=== PATIENT | male | born 1955 | race American Indian/Alaskan Native ===

== ENCOUNTER 2017-04-12 04:29 | Emergency (ER) | payer MEDICARE ==
--- NOTE | 2017-04-12 05:04 | C.PDOC ---
History Of Present Illness presents with right buttock pain radiating down his leg. Also has had some nausea and vomiting. Feels better now. No incontinence. Time Seen by Provider: 04/12/17 05:04 Chief Complaint (Nursing): Back Pain History Per: Patient History/Exam Limitations: no limitations Onset/Duration Of Symptoms: Days Current Symptoms Are (Timing): Still Present Quality Of Discomfort: Sharp, Aching Severity: Moderate Pain Scale Rating Of: 4 Previous Symptoms: Back Pain Associated Symptoms: None Exacerbating Factor(s): Movement, Sitting Recent travel outside of the [facility]: No Additional History Per: Patient Past Medical History Reviewed: Historical Data, Nursing Documentation, Vital Signs Vital Signs: Last Vital Signs Temp 97.5 F L 04/12/17 04:45 Pulse 90 04/12/17 04:45 Resp 22 04/12/17 04:45 BP 158/93 H 04/12/17 04:45 Pulse Ox 99 04/12/17 05:30 - Medical History PMH: HTN, Seizures Denies: Chronic Kidney Disease Family History: States: No Known Family Hx - Social History Hx Alcohol Use: Yes Hx Substance Use: No (denies) - Immunization History Hx Tetanus Toxoid Vaccination: No Hx Influenza Vaccination: Yes Hx Pneumococcal Vaccination: No Review Of Systems Constitutional: Negative for: Fever, Chills Eyes: Negative for: Redness ENT: Negative for: Throat Pain Cardiovascular: Negative for: Chest Pain Respiratory: Negative for: Shortness of Breath Gastrointestinal: Positive for: Nausea, Vomiting, Abdominal Pain Genitourinary: Negative for: Dysuria Musculoskeletal: Positive for: Leg Pain (right) Skin: Negative for: Rash Neurological: Negative for: Weakness Psych: Negative for: Anxiety Physical Exam - Physical Exam Appears: Non-toxic, No Acute Distress Skin: Warm, Dry Head: Normacephalic Eye(s): bilateral: Normal Inspection Oral Mucosa: Moist Neck: Supple Chest: Symmetrical Cardiovascular: Rhythm Regular Respiratory: No Rales, No Rhonchi, No Wheezing Gastrointestinal/Abdominal: Soft, Tenderness (mild , diffuse), No Distention, No Guarding, No Rebound Back: No CVA Tenderness, Straight Leg Raising (30 right leg) Extremity: Tenderness (r hip), No Pedal Edema, No Deformity Extremity: Bilateral: Atraumatic, Normal Color And Temperature Pulses: Left Dorsalis Pedis: Normal, Right Dorsalis Pedis: Normal Neurological/Psych: Oriented x3 Gait: With Assistance ED Course And Treatment - Laboratory Results Result Diagrams: 04/12/17 06:30 04/12/17 06:30 O2 Sat by Pulse Oximetry: 99 Disposition Counseled Patient/Family Regarding: Studies Performed, Diagnosis - Disposition Disposition Time: 05:04 Condition: UNKNOWN Forms: [facility] ([place]orese) - Clinical Impression Clinical Impression: Sciatica Physician Patient Turnover Patient Signed Over To: Benjamin Ibarra Handoff Comments: pending labs and disposition
[2017-04-12] MEDS ORDERED: Sodium Chloride 0.9% 1,000 ML IV ONE (05:12)
[2017-04-12 06:33] LABS: BASO # 0.1 K/uL (0.0-0.2); BASO % 0.6 % (0.0-2.0); EOS # 0.2 K/uL (0.0-0.7); EOS % 2.1 % (0.0-4.0); HEMOGLOBIN 11.5 g/dL (12.0-18.0); LYMPH % 21.3 % (20.0-40.0); MEAN CELL VOLUME 89.2 fL (80.0-94.0); MEAN CORPUSCULAR HEMOGLOBIN 30.9 pg (27.0-31.0); MEAN CORPUSCULAR HGB CONC 34.6 g/dL (33.0-37.0); MEAN PLATELET VOLUME 7.7 fL (7.2-11.7); MONO # 0.6 K/uL (0.0-0.8); MONO % 6.3 % (0.0-10.0); NEUT # 6.6 K/uL (1.8-7.0); NEUT % 69.7 % (50.0-75.0); RBC 3.72 Mil/uL (4.40-5.90); WHITE BLOOD COUNT 9.5 K/uL (4.8-10.8)
[2017-04-12 06:45] LABS: ALBUMIN 4.3 g/dL (3.5-5.0); CALCIUM 8.3 mg/dl (8.6-10.4)
[2017-04-12 06:53] LABS: ALB/GLOB RATIO 1.1 (1.0-2.1)
[2017-04-12 07:19] LABS: SQUAMOUS EPITHIAL < 1 /hpf (0-5); URINE BILIRUBIN NEGATIVE (NEGATIVE); URINE BLOOD NEGATIVE (NEGATIVE); URINE CLARITY Clear (Clear); URINE COLOR Yellow (YELLOW); URINE GLUCOSE (UA) NORMAL (Normal); URINE LEUKOCYTE ESTERASE NEG Leu/uL (Negative); URINE NITRATE NEGATIVE (NEGATIVE); URINE PROTEIN 1+ mg/dL (NEGATIVE); URINE UROBILINOGEN NORMAL mg/dL (0.2-1.0)
[2017-04-12 07:28] VITALS: BP 144/86; PULSE 84; RESP 18; TEMP 98.1; O2SAT 100
== END 2017-04-12 07:33 | disposition home or self-care (01) ==
LOC: C.ER 04:29
DX: M54.30 Sciatica, unspecified side (principal)
CPT/HCPCS: 80053; 81001; 83690; 85025; 96374; 96375; 99284; J1885; J2405; J7040

== ENCOUNTER 2017-04-20 22:37 | Inpatient (IN) | payer MEDICARE ==
[2017-04-20] MEDS ORDERED: Sodium Chloride 0.9% 1,000 ML IV ONE ×2 (23:06→23:44)
[2017-04-20 23:16] LABS: BASO # 0.2 K/uL (0.0-0.2); EOS # 0.2 K/uL (0.0-0.7); LYMPH # 2.1 K/uL (1.0-4.3); NEUT % 72.8 % (50.0-75.0)
[2017-04-20 23:21] LABS: BASO % 1.5 % (0.0-2.0); EOS % 1.6 % (0.0-4.0); HEMOGLOBIN 11.5 g/dL (12.0-18.0); MEAN CORPUSCULAR HEMOGLOBIN 30.4 pg (27.0-31.0); MEAN CORPUSCULAR HGB CONC 33.1 g/dL (33.0-37.0); MEAN PLATELET VOLUME 8.6 fL (7.2-11.7); MONO # 0.9 K/uL (0.0-0.8); MONO % 7.1 % (0.0-10.0); RBC 3.79 Mil/uL (4.40-5.90); RED CELL DISTRIBUTION WIDTH 14.9 % (11.5-14.5); WHITE BLOOD COUNT 12.3 K/uL (4.8-10.8)
[2017-04-20 23:24] LABS: INR 1.3; PROTHROMBIN TIME 14.8 SECONDS (9.7-12.2)
[2017-04-20 23:24] LABS: VENOUS BLOOD GAS BASE EXCESS -11.8 mmol/L (0.0-2.0); VENOUS BLOOD GAS PCO2 20 mmHg (40-60); VENOUS BLOOD GAS PO2 63 mm/Hg (30-55); VENOUS BLOOD PH 7.36 (7.32-7.43)
--- NOTE | 2017-04-20 23:33 | C.PDOC ---
History Of Present Illness 61 year old male is brought to the ED via EMS requiring immediate medical attention. Patient is complaining of generalized weakness. As per EMS, patient lives alone and his home was found to be in disarray. Patient was evaluated in ED on 04/12 for sciatica and was discharged with Rx for Flexeril. Patient denies chest pain, shortness of breath, nausea, and vomiting. Additional information limited due to patient's confused mental status. Time Seen by Provider: 04/20/17 23:07 Chief Complaint (Nursing): Weakness/Neurological Deficit History Per: EMS History/Exam Limitations: clinical condition Onset/Duration Of Symptoms: Hrs Current Symptoms Are (Timing): Still Present Associated Symptoms Preceding Syncopal Episode: No Predromal Symptoms (Sudden Onset) Seizure Or Post-ictal Symptoms: None Additional History Per: EMS - Symptoms Of CVA Associated Symptoms: New Confusion Past Medical History Reviewed: Historical Data, Nursing Documentation, Vital Signs Vital Signs: Last Vital Signs Temp 98 F 04/21/17 00:01 Pulse 68 04/21/17 01:00 Resp 18 04/21/17 01:00 BP 128/74 04/21/17 01:00 Pulse Ox 97 04/21/17 01:10 - Medical History PMH: HTN, Seizures Denies: Chronic Kidney Disease Surgical History: No Surg Hx Family History: States: Unknown Family Hx - Social History Hx Alcohol Use: Yes Hx Substance Use: No (denies) - Immunization History Hx Tetanus Toxoid Vaccination: No Hx Influenza Vaccination: Yes Hx Pneumococcal Vaccination: No Review Of Systems Review Of Systems: ROS cannot be obtained secondary to pt's inabilty to answer questions. Physical Exam - Physical Exam Appears: Non-toxic, Other (hypotensive, in moderate distress ) Skin: Normal Color, Warm, Dry Head: Atraumatic, Normacephalic Eye(s): bilateral: Normal Inspection Oral Mucosa: Moist Neck: Supple Chest: Symmetrical, No Deformity, No Tenderness Cardiovascular: Rhythm Regular, No Murmur Respiratory: Normal Breath Sounds, No Rales, No Rhonchi, No Wheezing Extremity: Normal ROM, Capillary Refill (less than 2 seconds ) Neurological/Psych: Other (alert, oriented and confused ) ED Course And Treatment - Laboratory Results Result Diagrams: 04/20/17 23:13 04/20/17 23:13 ECG: Interpreted By Me, Viewed By Me ECG Rhythm: Sinus Rhythm Interpretation Of ECG: Normal Sinus Rhythm at rate 82bpm. Left atrial enlargement. Nonspecific T wave changes. Rate From EC O2 Sat by Pulse Oximetry: 97 (on RA) Pulse Ox Interpretation: Normal Critical Care Time - Critical Care Note Total Time (in mins): 50 Documented critical care: time excludes all time spent performing seperately billable procedures. Medical Decision Making Medical Decision Making: Assessment: weakness and confusion Progress: Bloodwork, CXR, CT Head, EKG, UA ordered and reviewed. One liter IV fluids bolus administered. CXR - prel. nad 11:49pm: Case discussed with Dr. Owusu (ICU radio division lieutenant), who will evaluated the patient at bedside. 12:59pm: Patient was evaluated by Dr. Owusu, who requests Renal US. States patient is stable for transfer to the floor. case s/o Dr. Alba pending pending ct scan of head and renal ultrasound Disposition - Disposition Referrals: Non [facility] Provider, [Primary Care Provider] - Disposition Time: 01:12 Condition: FAIR Instructions: Weakness (ED) Forms: [employer] (Ukrainian) - Clinical Impression Clinical Impression: Dehydration, Weakness - Scribe Statement The provider has reviewed the documentation as recorded by the Scribe (Rina Lentz) Provider Attestation: All medical record entries made by the Scribe were at my direction and personally dictated by me. I have reviewed the chart and agree that the record accurately reflects my personal performance of the history, physical exam, medical decision making, and the department course for this patient. I have also personally directed, reviewed, and agree with the discharge instructions and disposition. Physician Patient Turnover Patient Signed Over To: Shaun Alba Handoff Comments: pending imagining and admission
[2017-04-20 23:38] LABS: ALB/GLOB RATIO 0.7 (1.0-2.1); ALBUMIN 4.1 g/dL (3.5-5.0); ALT/SGPT 109 U/L (21-72); AST/SGOT 92 U/L (17-59); BLOOD UREA NITROGEN 101 mg/dL (9-20); CALCIUM 9.5 mg/dl (8.6-10.4); GFR AFRICAN-AMERICAN 20; GFR NON-AFRICAN AMERICAN 16; LIPASE 582 U/L (23-300); MAGNESIUM 2.8 mg/dL (1.6-2.3)
[2017-04-20 23:39] LABS: B-TYPE NATRIURETIC PEPTIDE 134 pg/mL (0-900)
[2017-04-20 23:49] LABS: FREE T4 0.92 ng/dL (0.78-2.19)
[2017-04-21] MEDS ORDERED: Sodium Chloride 0.9% 1,000 ML IV ONE ×2 (00:12→01:17)
[2017-04-21 00:31] LABS: URINE BACTERIA OCC (<OCC); URINE BILIRUBIN NEGATIVE (NEGATIVE); URINE BLOOD NEGATIVE (NEGATIVE); URINE CLARITY Hazy (Clear); URINE COLOR Amber (YELLOW); URINE GLUCOSE (UA) NORMAL (Normal); URINE LEUKOCYTE ESTERASE NEG Leu/uL (Negative); URINE NITRATE NEGATIVE (NEGATIVE); URINE PROTEIN 2+ mg/dL (NEGATIVE)
--- NOTE | 2017-04-21 01:06 | CT ---
EXAM: CT Head Without Intravenous Contrast EXAM DATE/TIME: 04/20/2017 11:09 PM CLINICAL HISTORY: 61 years old, male; Pain; Headache and other: Dizziness; Prior surgery TECHNIQUE: Axial computed tomography images of the head/brain without intravenous contrast. All CT scans at this facility use one or more dose reduction techniques, viz.: automated exposure control; ma/kV adjustment per patient size (including targeted exams where dose is matched to indication; i.e. head); or iterative reconstruction technique. Coronal and sagittal reformatted images were created and reviewed. COMPARISON: No relevant prior studies available. FINDINGS: BRAIN: Moderate to large areas of encephalomalacia in the anterior, inferior frontal lobes bilaterally, which are relatively symmetric in appearance. There is overlying chronic-appearing dural thickening. Diffuse, age-related cortical atrophy and ventriculomegaly. No significant acute abnormality identified. No acute hemorrhage seen within the brain. No acute extra-axial fluid collections visualized. No evidence of significant mass effect within the brain. VENTRICLES: See above. BONES/JOINTS: Post operative changes involving the skull. Evidence of a prior anterior frontal craniotomy. Evidence of previous anterior frontal skull reconstruction with mesh material and multiple metallic screws. Small poornima hole in the right frontal skull. Post operative changes involving the facial bones. Metallic plate and screw fixation devices noted within the bilateral infraorbital rims and left lateral orbital wall. Old fractures of the nasal bones bilaterally. SOFT TISSUES: No acute abnormality of the visualized soft tissues is seen. SINUSES: Visualized paranasal sinuses appear clear. MASTOID AIR CELLS: Mastoid air cells appear clear. IMPRESSION: - No acute findings seen within the brain. - Bilateral frontal lobe encephalomalacia, most likely related to remote traumatic injury. - Evidence of chronic fractures of the anterior skull and facial bones bilaterally, with prior surgical fixation/reconstruction. - See above for remaining findings.
--- NOTE | 2017-04-21 01:13 | CP.PCM.CON ---
History of Present Illness - History of Present Illness History of Present Illness: CCM 61 yo male with hx HTN /seizure to ED c/o weakness. Pt BIBEMS after found in disarray at [facility]. Pt seen in ED 1 week prior for back pain and nausea & vomiting. Pt claims decreased PO over last week and admits being thirsty. claims urinating alot yest. No vomiting or diarrhea. No pain at present. no sob /fever /cough. Pt had episode low BP in ED respnded to IV fluid. Has received 2.5 liters. ROS- as noted All-PCN Social- denied tob/drugs- admits occ. etoh Meds- reviewed FH- Unknown PE Awake, responisve nad T- 97.6 P-72 r-16 BP 128/74 Perrl Neck- no jvdlungs- bilat bs Heart-rr ABd- bs+, soft, nontender Ext- no edema, nontender Neuro- nonfocal Labs, ekg, x--rays-reviewed A&P TIERRA Dehydration Hyperkalemia Transaminitis Hx HTN Seizure disorder cont IV hydration I&O's renal sono Hepatitis profile Treat hyperkalemia repeat labs/cpk cont monitoring until K+ normalized DVT prophylaxis no need for ICU re-consult prn Past Patient History - Infectious Disease Hx of Infectious Diseases: None - Past Social History Smoking Status: Never Smoked - CARDIAC Hx Hypertension: Yes - PULMONARY Hx Respiratory Disorders: No - NEUROLOGICAL Hx Seizures: Yes - HEENT Hx HEENT Problems: No - RENAL Hx Chronic Kidney Disease: No - ENDOCRINE/METABOLIC Hx Endocrine Disorders: No - HEMATOLOGICAL/ONCOLOGICAL Hx Blood Disorders: No - INTEGUMENTARY Hx Dermatological Problems: No - MUSCULOSKELETAL/RHEUMATOLOGICAL Other/Comment: hx sciatica - GASTROINTESTINAL Hx Gastrointestinal Disorders: No - GENITOURINARY/GYNECOLOGICAL Hx Genitourinary Disorders: No - PSYCHIATRIC Hx Substance Use: No (denies) - SURGICAL HISTORY Hx Herniorrhaphy: Yes - ANESTHESIA Hx Anesthesia: Yes Hx Anesthesia Reactions: No Meds Allergies/Adverse Reactions: Allergies Allergy/AdvReac Type Severity Reaction Status Date / Time Penicillins Allergy Mild RASH Verified 04/20/17 22:49 Results - Vital Signs Recent Vital Signs: Last Vital Signs Temp 98 F 04/21/17 00:01 Pulse 68 04/21/17 01:00 Resp 18 04/21/17 01:00 BP 128/74 04/21/17 01:00 Pulse Ox 97 04/21/17 01:10 - Labs Result Diagrams: 04/20/17 23:13 04/20/17 23:13 Labs: Laboratory Results - last 24 hr 04/20/17 04/20/17 04/20/17 23:13 23:13 23:13 WBC 12.3 H RBC 3.79 L Hgb 11.5 L Hct 34.9 L MCV 92.0 D MCH 30.4 MCHC 33.1 RDW 14.9 H Plt Count 648 H D MPV 8.6 Neut % (Auto) 72.8 Lymph % (Auto) 17.0 L Morton % (Auto) 7.1 Eos % (Auto) 1.6 Baso % (Auto) 1.5 Neut # 9.0 H Lymph # 2.1 Morton # 0.9 H Eos # 0.2 Baso # 0.2 PT 14.8 H INR 1.3 APTT 47 H pO2 VBG pH VBG pCO2 VBG HCO3 VBG Total CO2 VBG O2 Sat (Calc) VBG Base Excess VBG Potassium Glucose Lactate Sodium 153 H Potassium 5.7 H Chloride 116 H Carbon Dioxide 17 L Anion Gap 26 H BUN 101 H* D Creatinine 3.8 H Est GFR ( Amer) 20 Est GFR (Non-Af Amer) 16 Random Glucose 124 H Calcium 9.5 Magnesium 2.8 H Total Bilirubin 2.5 H AST 92 H ALT 109 H D Alkaline Phosphatase 198 H D Total Creatine Kinase 1012 H Troponin I 0.0820 NT-Pro-B Natriuret Pep 134 Total Protein 10.2 H Albumin 4.1 Globulin 6.0 H Albumin/Globulin Ratio 0.7 L Lipase 582 H Free T4 TSH 3rd Generation 1.56 Venous Blood Potassium Urine Color Urine Clarity Urine pH Ur Specific Chester Urine Protein Urine Glucose (UA) Urine Ketones Urine Blood Urine Nitrate Urine Bilirubin Urine Urobilinogen Ur Leukocyte Esterase Urine WBC (Auto) Urine Bacteria Hyaline Casts Alcohol, Quantitative < 10 04/20/17 04/20/17 04/21/17 23:13 23:22 00:24 WBC RBC Hgb Hct MCV MCH MCHC RDW Plt Count MPV Neut % (Auto) Lymph % (Auto) Morton % (Auto) Eos % (Auto) Baso % (Auto) Neut # Lymph # Morton # Eos # Baso # PT INR APTT pO2 63 H VBG pH 7.36 VBG pCO2 20 L VBG HCO3 15.5 VBG Total CO2 11.9 L VBG O2 Sat (Calc) 93.2 H VBG Base Excess -11.8 L VBG Potassium 2.6 L Glucose 72 L Lactate 1.0 Sodium 151.0 H Potassium Chloride 129.0 H Carbon Dioxide Anion Gap BUN Creatinine Est GFR ( Amer) Est GFR (Non-Af Amer) Random Glucose Calcium Magnesium Total Bilirubin AST ALT Alkaline Phosphatase Total Creatine Kinase Troponin I NT-Pro-B Natriuret Pep Total Protein Albumin Globulin Albumin/Globulin Ratio Lipase Free T4 0.92 TSH 3rd Generation 1.86 Venous Blood Potassium 2.6 L Urine Color Danielle Urine Clarity Hazy Urine pH 5.0 Ur Specific Chester 1.021 Urine Protein 2+ H Urine Glucose (UA) Normal Urine Ketones Negative Urine Blood Negative Urine Nitrate Negative Urine Bilirubin Negative Urine Urobilinogen 4.0 Ur Leukocyte Esterase Neg Urine WBC (Auto) 4 Urine Bacteria Occ H Hyaline Casts 11-20 H Alcohol, Quantitative Assessment & Plan (1) TIERRA (acute kidney injury) Status: Acute (2) Dehydration Status: Acute (3) Hyperkalemia Status: Acute (4) Seizure disorder Status: Chronic
[2017-04-21] MEDS ORDERED: Sodium Chloride 0.9% 1,000 ML ONE ×2 (01:27→02:52)
--- NOTE | 2017-04-21 02:50 | US ---
EXAM: US Retroperitoneal Complete, Renal EXAM DATE/TIME: 04/21/2017 12:52 AM CLINICAL HISTORY: 61 years old, male; Signs and symptoms; Other: River; Additional info: Acute kidney injury etio unnown TECHNIQUE: Real-time ultrasound of the retroperitoneum (complete) with image documentation. COMPARISON: No relevant prior studies available. FINDINGS: Right kidney: Demonstrates increased cortical echogenicity, most likely due to renal parenchymal disease. Otherwise within normal limits in appearance. Measures 10.5 cm in length. No evidence of hydronephrosis. Left kidney: Demonstrates increased cortical echogenicity, most likely due to renal parenchymal disease. Contains a 2 cm anechoic lesion, compatible with a simple cyst. Otherwise within normal limits in appearance. Measures 10.3 cm in length. No evidence of hydronephrosis. Bladder: Incompletely distended. Otherwise unremarkable in appearance. Other findings: Gallstones and gallbladder sludge incidentally noted. Reportedly negative sonographic Casillas's sign. Common bile duct does not appear abnormally dilated. IMPRESSION: Bilateral increased renal echogenicity, most likely due to renal parenchymal disease. No evidence of hydronephrosis. Left renal cyst. Gallstones and sludge incidentally noted. See above for remaining findings.
[2017-04-21] MEDS: Sodium Chloride 0.9% 1,000 ML IV SCH ×3 (02:54→19:00)
[2017-04-21 03:47] LABS: CALCIUM 6.9 mg/dl (8.6-10.4)
[2017-04-21 04:44] LABS: HEPATITIS B SURFACE AG NEGATIVE (NEGATIVE)
[2017-04-21 04:50] LABS: HEPATITIS A IGM NEGATIVE (NEGATIVE); HEPATITIS B CORE AB Negative (NEGATIVE)
[2017-04-21 05:01] LABS: HEPATITIS C ANTIBODY Negative (NEGATIVE)
--- NOTE | 2017-04-21 11:38 | VASCLAB ---
PROCEDURE: HISTORY: Loss of consciousness COMPARISON: None available. TECHNIQUE: Grayscale and duplex Doppler evaluation of the cervical carotid and vertebral arteries were performed. The common carotid, carotid bifurcations and cervical Internal Carotid Artery (ICA) and proximal External Carotid Artery (ECA) were evaluated. The vertebral arteries were evaluated for gross patency and flow direction. Report prepared by FRANCIE Lazo FINDINGS: RIGHT CAROTID ARTERIES: 1. Common Carotid Artery: No significant focal plaque formation of the right common carotid artery. Maximum Peak Systolic velocity: 103 cm/sec: End-diastolic velocity 19 cm/sec. 2. Carotid Bifurcation: plaque formation. Maximum Peak Systolic velocity: 71 cm/sec: End-diastolic velocity 13 cm/sec. 3. Internal Carotid Artery: Plaque description: 3.1. Proximal Segment: Peak systolic velocity 55 cm/sec: End-diastolic velocity 19 cm/sec - % stenosis 0-15% 3.2. Middle Segment: Peak systolic velocity 68 cm/sec: End-diastolic velocity 29 cm/sec - % stenosis 0-15% 3.3. Distal Segment: Peak systolic velocity 54 cm/sec: End-diastolic velocity 25 cm/sec - % stenosis 0-15% 4. External Carotid Artery: No significant focal plaque formation. Peak systolic velocity 94 cm/sec 5. ICA/CCA Ratio: 1.1 LEFT CAROTID ARTERIES: 1. Common Carotid Artery: No significant focal plaque formation of the left common carotid artery. Maximum Peak Systolic velocity: 103 cm/sec: End-diastolic velocity 27 cm/sec. 2. Carotid Bifurcation: plaque formation. Maximum Peak Systolic velocity: 58 cm/sec: End-diastolic velocity 19 cm/sec. 3. Internal Carotid Artery: Plaque description: Minimal calcific 3.1. Proximal Segment: Peak systolic velocity 55 cm/sec: End-diastolic velocity 22 cm/sec - % stenosis 0-15% 3.2. Middle Segment: Peak systolic velocity 69 cm/sec: End-diastolic velocity 29 cm/sec - % stenosis 0-15% 3.3. Distal Segment: Peak systolic velocity 35 cm/sec: End-diastolic velocity 12 cm/sec - % stenosis 0-15% 4. External Carotid Artery: No significant focal plaque formation. Peak systolic velocity 64 cm/sec 5. ICA/CCA Ratio: 0.7 VERTEBRAL ARTERIES: 1. Right Vertebral Artery: The right vertebral artery flow direction is antegrade. 2. Left Vertebral Artery: The left vertebral artery flow direction is antegrade. OTHER FINDINGS: 1. Right Brachial Blood pressure: 130 mmHg. 2. Left Brachial Blood pressure: 120 mmHg. IMPRESSION: RIGHT: Duplex scan does not suggest hemodynamically significant stenosis of the right extracranial carotid arteries. LEFT: Duplex scan does not suggest hemodynamically significant stenosis of the left extracranial carotid arteries.
--- NOTE | 2017-04-21 12:42 | CT ---
PROCEDURE: CT HEAD WITHOUT CONTRAST. HISTORY: episode of passing out COMPARISON: 04/21/2017. TECHNIQUE: Axial computed tomography images were obtained through the head/brain without intravenous contrast. Radiation dose: Total exam DLP = 1006.99 mGy-cm. This CT exam was performed using one or more of the following dose reduction techniques: Automated exposure control, adjustment of the mA and/or kV according to patient size, and/or use of iterative reconstruction technique. FINDINGS: HEMORRHAGE: No intracranial hemorrhage. BRAIN: There is redemonstration of cystic encephalomalacia in bilateral frontal lobes and postsurgical changes of anterior frontal craniotomy there is no mass, mass effect or abnormal extra-axial fluid collection. There is no territorial infarction. VENTRICLES: There is mild age-related global parenchymal volume loss and proportionate enlargement of the ventricles and cortical sulci. CALVARIUM: Status post frontal craniotomy. There are postsurgical changes of anterior frontal skull reconstruction with mashed material and multiple metallic screws. Small bore hole in the right frontal skull. There are chronic fractures in the nasal bones and bilateral infraorbital rims. PARANASAL SINUSES: Predominantly clear. MASTOID AIR CELLS: Predominantly clear. OTHER FINDINGS: None. IMPRESSION: No acute intracranial abnormality. Bilateral frontal lobe cystic encephalomalacia, sequela of remote trauma.
--- NOTE | 2017-04-21 13:10 | RAD ---
PROCEDURE: CHEST RADIOGRAPH, 1 VIEW HISTORY: chest pain COMPARISON: None available. FINDINGS: LUNGS: The lungs are well inflated. The right lung is clear. There is ill-defined airspace disease in the left lung base. PLEURA: No pneumothorax or pleural fluid seen. CARDIOVASCULAR: Normal. OSSEOUS STRUCTURES: No significant abnormalities. VISUALIZED UPPER ABDOMEN: Normal. OTHER FINDINGS: None. IMPRESSION: Ill-defined airspace disease in the left lung base may represent atelectasis or developing pneumonia. Follow-up after medical management is recommended to ensure complete resolution.
--- NOTE | 2017-04-21 13:40 | CP.PCM.PN ---
Subjective - Date & Time of Evaluation Date of Evaluation: 04/21/17 Time of Evaluation: 13:36 - Subjective Subjective: PGY2 progress note for Dr. Garcia 61 year old male with past medical history of HTN and seizure disorder was admitted to hospital for dehydration 2/2 vomiting. Patient states that for past few day she has been vomiting. He denie shaving any diarrhea or abdominal pain. Patient "felt funny" yesterday and was brought to hospital. While in the hospital, he was noted to have TIERRA 2/2 dehydration. Patient was fluid resuscitated. This morning nurse states that pt was using the commode, got up sat in bed and passed out for a few minutes. Patient then woke up spontaneously. Patient was not confused after this episode. He was A&ox3. Patient states that his last seizure was over 1 year ago. He normally has a smell aura prior to the seizure and then some tonic clonic movement and then postictal state. Currently, pt denies having any F/C, CP, SOB, abd pain, N/V/D/ C. PMHx: stated above Sx; denies Allergies: penicillin Social: denies tobacco, ETOH or drug use. lives alone Objective - Vital Signs/Intake and Output Vital Signs (last 24 hours): Temp Pulse Resp BP Pulse Ox 97.4 F L 72 20 112/62 98 04/21/17 05:30 04/21/17 05:30 04/21/17 05:30 04/21/17 12:53 04/21/17 05:30 Intake and Output: 04/21/17 04/21/17 06:59 18:59 Intake Total 4360 Output Total 380 Balance 3980 - Medications Medications: Current Medications Cyclobenzaprine HCl (Flexeril) 10 mg PO DAILY PRN PRN Reason: Muscle spasm Gemfibrozil (Lopid) 600 mg PO DAILY [facility] Heparin Sodium (Porcine) (Heparin) 5,000 units SC Q12 [facility] Last Admin: 04/21/17 09:44 Dose: 5,000 units Home Med (Clonazepam [Clonazepam]) 2 mg PO DAILY [facility] Home Med (Levetiracetam) 1,000 mg SL BID [facility] Sodium Chloride (Sodium Chloride 0.9%) 1,000 mls @ 125 mls/hr IV .Q8H [facility] Last Admin: 04/21/17 11:45 Dose: 125 mls/hr Pneumococcal Polyvalent Vaccine (Pneumovax 23 Vaccine) 0.5 ml IM .ONCE ONE Stop: 04/23/17 10:01 - Labs Labs: 04/20/17 23:13 04/21/17 03:28 PT 14.8 SECONDS (9.7-12.2) H 04/20/17 23:13 INR 1.3 04/20/17 23:13 APTT 47 SECONDS (21-34) H 04/20/17 23:13 - Constitutional Appears: Non-toxic, No Acute Distress - Head Exam Head Exam: ATRAUMATIC - ENT Exam ENT Exam: Mucous Membranes Moist - Respiratory Exam Respiratory Exam: Clear to Ausculation Bilateral. absent: Accessory Muscle Use , Rhonchi, Wheezes, Respiratory Distress - Cardiovascular Exam Cardiovascular Exam: REGULAR RHYTHM, +S1, +S2. absent: Gallop, Rubs, Murmur - GI/Abdominal Exam GI & Abdominal Exam: Soft, Normal Bowel Sounds. absent: Distended, Firm, Guarding, Rigid, Tenderness, Organomegaly - Extremities Exam Extremities Exam: absent: Pedal Edema, Tenderness - Neurological Exam Neurological Exam: Alert, Awake, CN II-XII Intact, Oriented x3 - Psychiatric Exam Psychiatric exam: Normal Affect, Normal Mood - Skin Skin Exam: Dry, Intact, Normal Color, Warm Assessment and Plan - Assessment and Plan (Free Text) Assessment: 61 year old male with past medical history of HTN and seizure disorder is admitted for dehydration 2/2 vomiting. Pt noted to have TIERRA with Cr of 3.8 on admission (previous 04/12/17 1.5). Dehydration Continue NS at 125 cc TIERRA Kidney function is improving Will continue to monitor Renal US was negative Transminitis Likely 2/2 dehydration will continue to monitor will check Hep panel Seizure disorder Will check EEG Continue home medication Keppra 1000 mg BID Transient loss of consciousness Will check Ct of head, carotid US and EEG Prophylaxis Pepcid SCDs Heparin All managements and orders per Dr. Garcia
[2017-04-21] MEDS ORDERED: LEVETIRACETAM 1000 MG SL SCH (18:00)
[2017-04-22 00:49] VITALS: RESP 20
[2017-04-22] MEDS: Sodium Chloride 0.9% 1,000 ML IV SCH ×4 (03:00→20:51)
--- NOTE | 2017-04-22 06:54 | HP ---
HISTORY OF PRESENT ILLNESS: The patient is a 61-year-old male, comes in with chief complaint of dehydration with renal insufficiency, presents with seizure for several years, had been on Keppra, with periods of loss of consciousness. The patient came to the ER, advised admission for renal failure. PHYSICAL EXAMINATION: The patient is awake, alert, oriented. VITAL SIGNS: Temperature is 98, pulse 90. HEENT: Within normal limits. NECK: Supple. CHEST: Symmetrical. HEART: Regular. ABDOMEN: Soft. EXTREMITIES: No edema. IMPRESSION: The patient with acute renal failure. Altered mental status seizure and CVA. PLAN: Patient will get bed rest, supportive care. Amie Garcia MD
[2017-04-22 09:07] LABS: ALB/GLOB RATIO 0.9 (1.0-2.1); ALBUMIN 3.4 g/dL (3.5-5.0); CALCIUM 8.4 mg/dl (8.6-10.4)
[2017-04-22 09:32] LABS: BASO % 0.3 % (0.0-2.0); EOS # 0.2 K/uL (0.0-0.7); EOS % 3.1 % (0.0-4.0); LYMPH # 1.7 K/uL (1.0-4.3); LYMPH % 23.9 % (20.0-40.0); MEAN CORPUSCULAR HEMOGLOBIN 30.1 pg (27.0-31.0); MEAN PLATELET VOLUME 7.6 fL (7.2-11.7); MONO # 0.3 K/uL (0.0-0.8); MONO % 4.5 % (0.0-10.0); NEUT # 4.8 K/uL (1.8-7.0); NEUT % 68.2 % (50.0-75.0); RBC 3.03 Mil/uL (4.40-5.90); RED CELL DISTRIBUTION WIDTH 14.4 % (11.5-14.5)
[2017-04-22 09:36] LABS: HEMOGLOBIN 9.1 g/dL (12.0-18.0)
[2017-04-22 09:40] LABS: HEPATITIS B SURFACE AG NEGATIVE (NEGATIVE)
[2017-04-22 09:45] LABS: HEPATITIS A IGM NEGATIVE (NEGATIVE); HEPATITIS B CORE AB Negative (NEGATIVE)
--- NOTE | 2017-04-22 09:49 | CARD ---
APPROVED REPORT EKG Measurement Heart [id number] ID [id number] <Conclusion> Normal sinus rhythm Possible Left atrial enlargement Nonspecific T wave abnormality Prolonged QT Abnormal ECG
--- NOTE | 2017-04-22 10:17 | CP.PCM.PN ---
Subjective - Date & Time of Evaluation Date of Evaluation: 04/22/17 Time of Evaluation: 10:13 - Subjective Subjective: PGY2 progress note for Dr. Garcia Pt seen and examined at bedside. No acute events overnight. Pt is A&Ox3 this morning and answering questions briskly. Patient denies having any RAE, CP, SOB , abd pain, N/V/D/C, F/C. Pt does complain of left sided neck pain which he attributes to sleeping incorrectly. Patient has full ROM of neck and is able to move all extremities without difficulty. 12 point ROS negative except for above mentioned. Objective - Vital Signs/Intake and Output Vital Signs (last 24 hours): Temp Pulse Resp BP Pulse Ox 98.6 F 74 20 131/81 100 04/22/17 07:36 04/22/17 07:36 04/22/17 07:36 04/22/17 07:36 04/22/17 07:36 Intake and Output: 04/22/17 04/22/17 06:59 18:59 Intake Total 2420 Output Total 2100 Balance 320 - Medications Medications: Current Medications Clonazepam (Klonopin) 2 mg PO DAILY [facility] Last Admin: 04/22/17 09:38 Dose: 2 mg Cyclobenzaprine HCl (Flexeril) 10 mg PO DAILY PRN PRN Reason: Muscle spasm Last Admin: 04/21/17 14:11 Dose: 10 mg Famotidine (Pepcid) 20 mg PO DAILY [facility] Last Admin: 04/22/17 09:38 Dose: 20 mg Gemfibrozil (Lopid) 600 mg PO DAILY [facility] Last Admin: 04/22/17 09:38 Dose: 600 mg Heparin Sodium (Porcine) (Heparin) 5,000 units SC Q12 [facility] Last Admin: 04/22/17 09:39 Dose: 5,000 units Sodium Chloride (Sodium Chloride 0.9%) 1,000 mls @ 125 mls/hr IV .Q8H [facility] Last Admin: 04/22/17 03:00 Dose: 125 mls/hr Levetiracetam (Keppra) 1,000 mg PO BID [facility] Last Admin: 04/22/17 09:38 Dose: 1,000 mg Pneumococcal Polyvalent Vaccine (Pneumovax 23 Vaccine) 0.5 ml IM .ONCE ONE Stop: 01/19/18 10:01 - Labs Labs: 04/22/17 09:24 04/22/17 08:40 PT 14.8 SECONDS (9.7-12.2) H 04/20/17 23:13 INR 1.3 04/20/17 23:13 APTT 47 SECONDS (21-34) H 04/20/17 23:13 - Constitutional Appears: Non-toxic, No Acute Distress - Head Exam Head Exam: ATRAUMATIC - ENT Exam ENT Exam: Mucous Membranes Moist - Respiratory Exam Respiratory Exam: Clear to Ausculation Bilateral. absent: Accessory Muscle Use , Rales, Rhonchi, Wheezes, Respiratory Distress - Cardiovascular Exam Cardiovascular Exam: REGULAR RHYTHM, +S1, +S2. absent: Gallop, Rubs, Murmur - GI/Abdominal Exam GI & Abdominal Exam: Soft, Normal Bowel Sounds. absent: Distended, Firm, Guarding, Rigid, Tenderness, Organomegaly - Back Exam Back Exam: NORMAL INSPECTION. absent: paraspinal tenderness Additional comments: left side of neck paraspinal hypertrophy noted. - Neurological Exam Neurological Exam: Alert, Awake, Oriented x3 - Psychiatric Exam Psychiatric exam: Normal Affect, Normal Mood - Skin Skin Exam: Dry, Intact, Normal Color, Warm Assessment and Plan - Assessment and Plan (Free Text) Assessment: 61 year old male with past medical history of HTN and seizure disorder is admitted for dehydration 2/2 vomiting. Pt noted to have TIERRA with Cr of 3.8 on admission (previous 04/12/17 1.5). Dehydration Continue NS at 125 cc LFTs and kidney function is improving Patient has good urine output TIERRA Kidney function is improving. Repeat BUN this am is 55 Cr 2.1 Will continue to monitor Renal US was negative Transminitis Improved Seizure disorder Will check EEG Continue home medication Keppra 1000 mg BID Transient loss of consciousness Ct of head negative for acute changes Carotid US is normal EEG pending Prophylaxis Pepcid SCDs Heparin Will consult PT for weakness All managements and orders per Dr. Garcia
[2017-04-22 10:36] LABS: HEPATITIS C ANTIBODY Negative (NEGATIVE)
[2017-04-23 00:56] VITALS: O2SAT 95
[2017-04-23] MEDS: Sodium Chloride 0.9% 1,000 ML IV SCH ×4 (03:00→14:51)
[2017-04-23 07:07] LABS: BASO % 0.4 % (0.0-2.0); EOS # 0.2 K/uL (0.0-0.7); EOS % 3.2 % (0.0-4.0); HEMOGLOBIN 8.6 g/dL (12.0-18.0); LYMPH # 1.8 K/uL (1.0-4.3); LYMPH % 27.1 % (20.0-40.0); MEAN CELL VOLUME 89.2 fL (80.0-94.0); MEAN CORPUSCULAR HGB CONC 33.7 g/dL (33.0-37.0); MEAN PLATELET VOLUME 7.8 fL (7.2-11.7); MONO # 0.4 K/uL (0.0-0.8); NEUT # 4.3 K/uL (1.8-7.0); NEUT % 63.3 % (50.0-75.0); RBC 2.87 Mil/uL (4.40-5.90); RED CELL DISTRIBUTION WIDTH 14.1 % (11.5-14.5); WHITE BLOOD COUNT 6.8 K/uL (4.8-10.8)
[2017-04-23 08:27] LABS: ALB/GLOB RATIO 0.9 (1.0-2.1); ALBUMIN 3.5 g/dL (3.5-5.0); CALCIUM 8.9 mg/dl (8.6-10.4)
[2017-04-23] MEDS: Pneumococcal 23-Valent Vaccine IM ONE (09:47)
--- NOTE | 2017-04-23 10:22 | CP.PCM.PN ---
Subjective - Date & Time of Evaluation Date of Evaluation: 04/23/17 Time of Evaluation: 10:18 - Subjective Subjective: PGY2 progress note for Dr. Garcia Pt seen and examined at bedside. No acute events overnight. Pt restring comfortably. Denies having any CP, SOB, abd pain, N/V/D/C, F/C. Pt tolerating diet well. 12 point ROS negative except for above mentioned. Objective - Vital Signs/Intake and Output Vital Signs (last 24 hours): Temp Pulse Resp BP Pulse Ox 99.6 F 98 H 20 156/89 H 95 04/23/17 07:00 04/23/17 07:00 04/23/17 07:00 04/23/17 07:00 04/23/17 07:00 Intake and Output: 04/23/17 04/23/17 06:59 18:59 Intake Total 990 Output Total 300 Balance 690 - Medications Medications: Current Medications Clonazepam (Klonopin) 2 mg PO DAILY [facility] Last Admin: 04/23/17 09:45 Dose: 2 mg Cyclobenzaprine HCl (Flexeril) 10 mg PO DAILY PRN PRN Reason: Muscle spasm Last Admin: 04/23/17 09:45 Dose: 10 mg Famotidine (Pepcid) 20 mg PO DAILY [facility] Last Admin: 04/22/17 09:38 Dose: 20 mg Gemfibrozil (Lopid) 600 mg PO DAILY [facility] Last Admin: 04/23/17 09:46 Dose: 600 mg Heparin Sodium (Porcine) (Heparin) 5,000 units SC Q12 [facility] Last Admin: 04/23/17 09:45 Dose: 5,000 units Sodium Chloride (Sodium Chloride 0.9%) 1,000 mls @ 125 mls/hr IV .Q8H [facility] Last Admin: 04/23/17 05:00 Dose: 125 mls/hr Levetiracetam (Keppra) 1,000 mg PO BID [facility] Last Admin: 04/23/17 09:45 Dose: 1,000 mg - Labs Labs: 04/23/17 06:45 04/23/17 06:45 PT 14.8 SECONDS (9.7-12.2) H 04/20/17 23:13 INR 1.3 04/20/17 23:13 APTT 47 SECONDS (21-34) H 04/20/17 23:13 - Constitutional Appears: Non-toxic, No Acute Distress - Head Exam Head Exam: ATRAUMATIC - ENT Exam ENT Exam: Mucous Membranes Moist - Respiratory Exam Respiratory Exam: Clear to Ausculation Bilateral. absent: Accessory Muscle Use , Rhonchi, Wheezes, Respiratory Distress - Cardiovascular Exam Cardiovascular Exam: REGULAR RHYTHM, +S1, +S2. absent: Gallop, Rubs, Murmur - GI/Abdominal Exam GI & Abdominal Exam: Soft, Normal Bowel Sounds. absent: Distended, Firm, Guarding, Rigid, Tenderness, Organomegaly - Extremities Exam Extremities Exam: absent: Pedal Edema, Tenderness - Neurological Exam Neurological Exam: Alert, Awake, Oriented x3 - Psychiatric Exam Psychiatric exam: Normal Affect, Normal Mood - Skin Skin Exam: Dry, Intact, Normal Color, Warm Assessment and Plan - Assessment and Plan (Free Text) Assessment: 61 year old male with past medical history of HTN and seizure disorder is admitted for dehydration 2/2 vomiting. Pt noted to have TIERRA with Cr of 3.8 on admission (previous 04/12/17 1.5). Dehydration Continue NS at 125 cc LFTs and kidney function is improving Patient has good urine output TIERRA Kidney function improving. Will avoid nephrotoxic drugs Renal US was negative Transminitis Improved hep panel negative Seizure disorder EEG pending Continue home medication Keppra 1000 mg BID Transient loss of consciousness Ct of head negative for acute changes Carotid US is normal EEG pending Prophylaxis Pepcid SCDs Heparin Will consult PT/OT for weakness All managements and orders per Dr. Garcia Disposition: Patient was seen by PT/OT who recommended [facility] for patient. Patient refused to go to [facility] stating that his sister from [place] is coming to take him to [place] to live with her. I spoke with sister, Bhavya Ratliff ([phone]) who states that she will be coming to pick him up in two days. Since patient has unsteady gait and weakness, will wait to discharge patient.
[2017-04-23 12:53] LABS: IRON 10 ug/dL (49-181)
[2017-04-23 12:54] LABS: % IRON SATURATION 5 (20-55); TOTAL IRON BINDING CAPACITY 200 ug/dL (250-450)
[2017-04-23] MEDS ORDERED: Sodium Chloride 0.9% 1,000 ML IV SCH (15:41)
--- NOTE | 2017-04-23 16:19 | RAD ---
HISTORY: fever COMPARISON: Chest radiograph dated 04/20/2017 FINDINGS: LUNGS: Previously described left basilar airspace disease not clearly evident on the current study. PLEURA: No significant pleural effusion identified, no pneumothorax apparent. CARDIOVASCULAR: Normal. OSSEOUS STRUCTURES: Unchanged. VISUALIZED UPPER ABDOMEN: Normal. OTHER FINDINGS: None. IMPRESSION: Previously described left basilar airspace disease not clearly evident on the current study.
[2017-04-23 18:00] LABS: URINE BILIRUBIN NEGATIVE (NEGATIVE); URINE CLARITY Clear (Clear); URINE COLOR Straw (YELLOW); URINE GLUCOSE (UA) NORMAL (Normal); URINE LEUKOCYTE ESTERASE NEG Leu/uL (Negative); URINE NITRATE NEGATIVE (NEGATIVE); URINE PROTEIN 1+ mg/dL (NEGATIVE); URINE UROBILINOGEN NORMAL mg/dL (0.2-1.0)
[2017-04-23 18:11] LABS: URINE BLOOD NEGATIVE (NEGATIVE)
[2017-04-24 08:58] LABS: ALB/GLOB RATIO 0.9 (1.0-2.1); ALBUMIN 3.6 g/dL (3.5-5.0)
[2017-04-24 08:59] LABS: BASO % 0.4 % (0.0-2.0); EOS # 0.2 K/uL (0.0-0.7); EOS % 3.4 % (0.0-4.0); HEMOGLOBIN 8.6 g/dL (12.0-18.0); LYMPH # 1.6 K/uL (1.0-4.3); MEAN CORPUSCULAR HGB CONC 32.9 g/dL (33.0-37.0); MEAN PLATELET VOLUME 8.4 fL (7.2-11.7); MONO # 0.4 K/uL (0.0-0.8); MONO % 7.1 % (0.0-10.0); NEUT # 3.7 K/uL (1.8-7.0); NEUT % 62.1 % (50.0-75.0); NRBC % 0.2 % (0.0-2.0); RBC 2.86 Mil/uL (4.40-5.90); RED CELL DISTRIBUTION WIDTH 14.1 % (11.5-14.5)
--- NOTE | 2017-04-24 11:17 | CP.PCM.PN ---
Subjective - Date & Time of Evaluation Date of Evaluation: 04/24/17 Time of Evaluation: 11:17 - Subjective Subjective: Alert and orientedx3, no acute distress. Objective - Vital Signs/Intake and Output Vital Signs (last 24 hours): Temp Pulse Resp BP Pulse Ox 98.2 F 108 H 20 129/77 95 04/23/17 23:15 04/23/17 23:15 04/23/17 23:15 04/23/17 23:15 04/23/17 23:15 Intake and Output: 04/24/17 04/24/17 06:59 18:59 Intake Total 1000 Output Total 1100 Balance -100 - Medications Medications: Current Medications Clonazepam (Klonopin) 2 mg PO DAILY [facility] Last Admin: 04/23/17 09:45 Dose: 2 mg Cyclobenzaprine HCl (Flexeril) 10 mg PO DAILY PRN PRN Reason: Muscle spasm Last Admin: 04/23/17 09:45 Dose: 10 mg Famotidine (Pepcid) 20 mg PO DAILY [facility] Last Admin: 04/23/17 10:00 Dose: 20 mg Gemfibrozil (Lopid) 600 mg PO DAILY [facility] Last Admin: 04/23/17 09:46 Dose: 600 mg Sodium Chloride (Sodium Chloride 0.9%) 1,000 mls @ 75 mls/hr IV .[id number] [facility] Last Admin: 04/23/17 16:00 Dose: 75 mls/hr Cefepime HCl 1 gm/ Dextrose 50 mls @ 100 mls/hr IVPB Q12H [facility] Last Admin: 04/23/17 20:21 Dose: 100 mls/hr Levetiracetam (Keppra) 1,000 mg PO BID [facility] Last Admin: 04/23/17 20:21 Dose: 1,000 mg - Labs Labs: 04/24/17 08:18 04/24/17 08:18 PT 14.8 SECONDS (9.7-12.2) H 04/20/17 23:13 INR 1.3 04/20/17 23:13 APTT 47 SECONDS (21-34) H 04/20/17 23:13 Assessment and Plan - Assessment and Plan (Free Text) Assessment: Patient is seen by DR Garcia, insisting to go home. Had fever yesterday but with normal temp now. Patient doesn't want to wait for blood cultures repsults. As per DR Garcia discharged home on oral ceftin 250mg bid for 7 days. Advised follow up with PMD IN 1 week or as needed. Alert and orientedx3, no sob or chest pains noted.
[2017-04-24] MEDS ORDERED: Pneumococcal 23-Valent Vaccine IM ONE (14:17)
[2017-04-24] MEDS: Pneumococcal 23-Valent Vaccine IM ONE (14:28)
[2017-04-24 16:20] VITALS: BP 143/89; PULSE 109; TEMP 98.1
--- NOTE | 2017-04-25 21:44 | DS ---
HISTORY OF PRESENT ILLNESS: Mr. Hsieh is a 61-year-old male, admitted with chief complaint of loss of consciousness, weakness, dehydration. Patient is with seizure, on Keppra. The patient with elevated BUN and creatinine. The patient started on IV hydration, started on Keppra. He has improved mental status. The patient got a fever of 102. Blood culture urine culture, start antibiotics. Hemoglobin down at 8, but has been stable at that level. The patient insisted on him being discharged today because he has his own private doctor in [place]. The patient was given Ceftin by mouth 250 twice a day. Advised to see his physician and we will follow out urine and blood culture as an outpatient. Seizure, dehydration, fever and possible sepsis. Amie Garcia MD
== END 2017-04-24 17:00 | disposition home or self-care (01) | DRG 683 ==
LOC: SUPCPDRO 22:37 → C.ER 22:37 → C.9E 04-21 03:20 → C.6T 04-21 04:18
PROVIDERS: ADMIT Internal Medicine Pulmonary Disease; ATTEND Internal Medicine Pulmonary Disease
DX: N17.9 Acute kidney failure, unspecified (principal); E86.0 Dehydration; E87.5 Hyperkalemia; R41.82 Altered mental status, unspecified; I69.354 Hemiplegia and hemiparesis following cerebral infarction affecting left non-dominant side; G40.909 Epilepsy, unspecified, not intractable, without status epilepticus; I10 Essential (primary) hypertension; M54.30 Sciatica, unspecified side; R50.9 Fever, unspecified; R26.81 Unsteadiness on feet; Z88.0 Allergy status to penicillin

== ENCOUNTER 2017-11-24 11:26 | Inpatient (IN) | payer MEDICARE ==
[2017-11-24] MEDS ORDERED: Sodium Chloride 0.9% 1,000 ML IV ONE ×3 (11:48→16:55)
--- NOTE | 2017-11-24 11:57 | C.PDOC ---
History Of Present Illness <Abbey Thao - Last Filed: 11/24/17 15:06> <Arcelia,Eileen A - Last Filed: 11/24/17 17:55> 62 y/o male with history of HTN and Seizure brought to ED by EMS after being found on floor in his house. Patient states he fell and has been on the floor for 2 days. Patient reports abrasion to ridge of nose and denies loc, headache, nausea, vomiting or any other complaints at this time. (Eileen Paniagua) <Abbey Thao - Last Filed: 11/24/17 15:06> - HPI History Per: Patient History/Exam Limitations: no limitations Onset/Duration Of Symptoms: Days Severity: Mild - Fall Fall:Prior To Injury: Other (possible seizure) <Eileen Paniagua Joselyn - Last Filed: 11/24/17 17:55> - HPI Time Seen by Provider: 11/24/17 11:31 Chief Complaint (Nursing): Trauma Past Medical History Reviewed: Historical Data, Nursing Documentation, Vital Signs - Medical History PMH: HTN, Seizures (3 years ago) Other PMH: chronic kidney disease Surgical History: No Surg Hx Family History: States: No Known Family Hx - Social History Hx Alcohol Use: Yes (SOCIAL) Hx Substance Use: No - Immunization History Hx Tetanus Toxoid Vaccination: No Hx Influenza Vaccination: Yes Hx Pneumococcal Vaccination: No <Eileen Paniagua Joselyn - Last Filed: 11/24/17 17:55> Vital Signs: Last Vital Signs Temp 98 F 11/24/17 11:32 Pulse 108 H 11/24/17 16:38 Resp 18 11/24/17 16:38 BP 115/77 11/24/17 16:38 Pulse Ox 98 11/24/17 17:51 Review Of Systems Constitutional: Negative for: Fever, Chills Cardiovascular: Negative for: Chest Pain Respiratory: Negative for: Shortness of Breath Neurological: Positive for: Weakness, Seizures <Eileen Paniagua - Last Filed: 11/24/17 17:55> Physical Exam - Physical Exam Appears: Non-toxic, No Acute Distress Skin: Warm, Dry, No Rash Head: Atraumatic, Normacephalic Eye(s): bilateral: Normal Inspection Nose: Other (abrasion to ridge of nose. No active bleeding) Oral Mucosa: Dry Teeth: Caries Neck: Normal ROM, Supple Cardiovascular: Rhythm Regular Respiratory: Normal Breath Sounds, No Rales, No Rhonchi, No Wheezing Gastrointestinal/Abdominal: Soft, No Tenderness, No Guarding, No Rebound Extremity: Normal ROM, Capillary Refill (<2 seconds) Neurological/Psych: Oriented x3, Normal Speech, Normal Cognition, Normal Motor, Normal Sensation Gait: Unable To Assess <Eileen Paniagua Joselyn - Last Filed: 11/24/17 17:55> ED Course And Treatment - Laboratory Results Result Diagrams: 11/24/17 15:09 11/24/17 15:09 Lab Interpretation: Abnormal ECG: Interpreted By Me ECG Rhythm: Sinus Tachycardia, Nonspecific Changes Rate From EC O2 Sat by Pulse Oximetry: 98 (RA) Pulse Ox Interpretation: Normal - Radiology CXR: Interpreted by Oh CXR Interpretation: Yes: No Acute Disease - CT Scan/US No standard instances Other Rad Studies (CT/US): Read By Radiologist, Radiology Report Reviewed CT/US Interpretation: INDINGS: VERTEBRAE: No acute compression fractures no retropulsed fragments. Vertebral bodies exhibit normal stature. There is straightening of the normal cervical lordosis possibly secondary to patient positioning gantry however the possibility of mild muscle spasm may contribute. Vertebral bodies and facets otherwise normally aligned. DISCS/SPINAL CANAL/ NEURAL FORAMINA: Mild multilevel degenerative spondylosis. At the C5-C6 level , there is disc space narrowing, endplate eburnation with small anterior osteophyte formation. Small broad-based osteophytic ridge disc complexes also present and contiguous with mildly overgrown uncovertebral joints. Changes result in mild canal narrowing and cord compression. Exit foramina are narrowed bilaterally. Facet joints also hypertrophic. Similar but less severe changes seen at the C6-C7 level with small broad-based disc ridge complex that appears to be asymmetrically larger on the left than the right. Changes result in mild canal narrowing and flattening of the ventral surface of the cord more so on the left side. Exit foramina are marginal. At the C4-C5 level, there is adequate disc height. Small central and bilateral disc bulge indents the ventral surface of the thecal sac and cord. Central canal appears adequate. Facets are mildly overgrown. Exit foramina adequate on left and marginal on the right. At the C3-C4 level, there is minor disc space narrowing with small broad-based disc bulge ridge complex also contiguous with mildly overgrown uncovertebral joints. Facets are mildly hypertrophic bilaterally right greater than left. Exit foramina appear narrowed on the left than marginal on the right. PARASPINAL SOFT TISSUES: Unremarkable. OTHER FINDINGS: None. IMPRESSION: No acute fractures. Mild straightening of the normal cervical lordosis which may in part be due to patient positioning gantry however underlying element of muscle spasm may contribute. Mild multilevel degenerative spondylosis as described above. FINDINGS: HEMORRHAGE: No acute parenchymal, subarachnoid or extra-axial hemorrhage. BRAIN: Extensive encephalomalacia changes involving the frontal lobes left greater than right again noted. Changes likely post traumatic given the at appearance as well as what appears to represent craniotomy/cranioplasty changes with concomitant craniotomy/ cranioplasty changes involving frontal calvarium and apparent exenteration of the frontal sinus. Questionable mild encephalomalacia anterior temporal lobes. Moderate to fairly significant central volume loss not withstanding the aforementioned encephalomalacia and ex vacuo dilatation.No evidence of large acute infarct however the possibility of a small hyperacute infarct cannot be excluded on this study. Clinical correlation recommended. VENTRICLES: No obstructive hydrocephalus however ex vacuo dilatation of the frontal horns and to lesser degree anterior and mid bodies of the lateral ventricles due to the aforementioned encephalomalacia. . CALVARIUM: As mentioned above, there are extensive craniotomy/ cranioplasty changes frontal calvarium with apparent exenteration of the frontal sinus. Postoperative changes extend inferiorly to the level of the glabella and appear to involve the anterior superior ethmoid air complex as well. Clinical correlation with surgical history. PARANASAL SINUSES: There also appears to be some mucosal thickening and/or granulation tissue involving the superior ethmoid air complex more so on the right side is well which could be posttraumatic or post surgical. . Also again seen are chronic appearing bilateral nasal bone fracture deformities. ORIF changes anterior wall left maxillary antrum. MASTOID AIR CELLS: Unremarkable as visualized. No inflammatory changes. OTHER FINDINGS: None. IMPRESSION: No acute intracranial hemorrhage. 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 Moderate sulci the thickened central volume loss. Overlying bifrontal craniotomy/cranioplasty changes with presumed exenteration of the frontal sinus. These changes extend inferiorly to involve the glabellar region with presumed granulation tissue/ scarring in the anterior superior ethmoid air complex with bilateral nasal bone fracture deformities. ORIF changes anterior wall left maxillary antrum. There is ex vacuo dilatation of the frontal horns and to a lesser degree anterior mid bodies of the lateral ventricles. Moderate to fairly significant central volume loss not withstanding the aforementioned encephalomalacia and ex vacuo dilatation. Progress Note: CT Head, CT cervical Spine, Blood work, CXR, UA ordered. IV fluids administered. Patient treated with NSS X 3 liters. Case discssed and patient evaluated by ICU hospitalist and dis not accept to ICU Reassessment Condition: Improved - Physician Consult Information Physician Contacted: Amie Garcia Outcome Of Conversation: admit <Eileen Paniagua - Last Filed: 11/24/17 17:55> Supervising Attending Note - Supervising Attending Note The Documented history was done by the: Physician Pipe Fitter Maintenance The documented physical exam was done by the: Physician Pipe Fitter Maintenance The documented procedures were done by the: Physician Pipe Fitter Maintenance - Attestation: I have personally seen and examined this patient.: Yes I have fully participated in the care of the patient.: Yes I have reviewed all pertinent clinical information, including history, physical exam and plan: Yes <Abbey Thao - Last Filed: 11/24/17 15:06> <Eileen Paniagua - Last Filed: 11/24/17 17:55> - Notes: Notes:: BREAKTHROUGH SZ 2 DAYS AGO, LAYING ON FLOOR X UNK DURATION. OTHERWISE ASYMPT. PS UNABLE TO GET SELF UP FLOOR. EXAM ABOVE (Abbey Thao) Medical Decision Making <Abbey Thao - Last Filed: 11/24/17 15:06> <Eileen Paniagua - Last Filed: 11/24/17 17:55> Medical Decision Making: Case discussed with Dr Garcia who agrees to admit and request ICU evaluation Patient evaluated by ICU Patient admitted to telemetry On re-evaluation lungs clear in no distress (Eileen Paniagua) Disposition <Abbey Thao - Last Filed: 11/24/17 15:06> Discussed With : Amie Garcia Doctor Will See Patient In The: Hospital - Disposition Disposition Time: 17:00 - POA Present On Arrival: None <Eileen Paniagua - Last Filed: 11/24/17 17:55> - Disposition Disposition: HOSPITALIZED Condition: GUARDED - Clinical Impression Clinical Impression: Acute kidney failure, Rhabdomyolysis, TIERRA (acute kidney injury) Critical Care Time <Abbey Thao - Last Filed: 11/24/17 15:06> - PA / SIDE PANEL PADDER / Resident Statement MD/ has reviewed & agrees with the documentation as recorded. - Scribe Statement The provider has reviewed the documentation as recorded by the Scribe <Eileen Paniagua - Last Filed: 11/24/17 17:55> - Scribe Statement Sedrick Curtis All medical record entries made by the Scribe were at my direction and personally dictated by me. I have reviewed the chart and agree that the record accurately reflects my personal performance of the history, physical exam, medical decision making, and the department course for this patient. I have also personally directed, reviewed, and agree with the discharge instructions and disposition. (Eileen Paniagua) PROCEDURES - EJ/Peripheral Line Consent Obtained: verbal consent Time Out Performed: Yes Skin Cleansed in Sterile Fashion: Yes Size: 20 IV Secured and Dressing Applied: Yes Patient Tolerated Procedure: Well <Abbey Thao - Last Filed: 11/24/17 15:06> <Eileen Paniagua - Last Filed: 11/24/17 17:55> - EJ/Peripheral Line Additional comments: Candace BOWMAN (Abbey Thao) Decision To Admit <Abbey Thao - Last Filed: 11/24/17 15:06> - Pt Status Changed To: Hospital Disposition Of: Inpatient - Admit Certification Admit to Inpatient:: After my assessment, the patient will require hospitalization for at least two midnights. This is because of the severity of symptoms shown, intensity of services needed, and/or the medical risk in this patient being treated as an outpatient. - InPatient: Physician Admission Certification: I certify that this patient requires 2 or more midnights of care for the following reason:: rhabdomyosis. Acute kidney failure - . Bed Request Type: Telemetry Admitting Physician: Amie Garcia <Eileen Paniagua - Last Filed: 11/24/17 17:55> - . Patient Diagnosis: Acute kidney failure, Rhabdomyolysis, TIERRA (acute kidney injury)
--- NOTE | 2017-11-24 12:54 | CT ---
Date of service: 11/24/2017 PROCEDURE: CT HEAD WITHOUT CONTRAST. HISTORY: R/O Bleed COMPARISON: Comparison made with prior CT scan of the brain dated 04/21/2017. TECHNIQUE: Axial computed tomography images were obtained through the head/brain without intravenous contrast. Radiation dose: Total exam DLP = 952.07 mGy-cm. This CT exam was performed using one or more of the following dose reduction techniques: Automated exposure control, adjustment of the mA and/or kV according to patient size, and/or use of iterative reconstruction technique. . FINDINGS: HEMORRHAGE: No acute parenchymal, subarachnoid or extra-axial hemorrhage. BRAIN: Extensive encephalomalacia changes involving the frontal lobes left greater than right again noted. Changes likely post traumatic given the at appearance as well as what appears to represent craniotomy/cranioplasty changes with concomitant craniotomy/cranioplasty changes involving frontal calvarium and apparent exenteration of the frontal sinus. Questionable mild encephalomalacia anterior temporal lobes. Moderate to fairly significant central volume loss not withstanding the aforementioned encephalomalacia and ex vacuo dilatation.No evidence of large acute infarct however the possibility of a small hyperacute infarct cannot be excluded on this study. Clinical correlation recommended. VENTRICLES: No obstructive hydrocephalus however ex vacuo dilatation of the frontal horns and to lesser degree anterior and mid bodies of the lateral ventricles due to the aforementioned encephalomalacia. . CALVARIUM: As mentioned above, there are extensive craniotomy/ cranioplasty changes frontal calvarium with apparent exenteration of the frontal sinus. Postoperative changes extend inferiorly to the level of the glabella and appear to involve the anterior superior ethmoid air complex as well. Clinical correlation with surgical history. PARANASAL SINUSES: There also appears to be some mucosal thickening and/or granulation tissue involving the superior ethmoid air complex more so on the right side is well which could be posttraumatic or post surgical. . Also again seen are chronic appearing bilateral nasal bone fracture deformities. ORIF changes anterior wall left maxillary antrum. MASTOID AIR CELLS: Unremarkable as visualized. No inflammatory changes. OTHER FINDINGS: None. IMPRESSION: No acute intracranial hemorrhage. 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 Moderate sulci the thickened central volume loss. Overlying bifrontal craniotomy/cranioplasty changes with presumed exenteration of the frontal sinus. These changes extend inferiorly to involve the glabellar region with presumed granulation tissue/ scarring in the anterior superior ethmoid air complex with bilateral nasal bone fracture deformities. ORIF changes anterior wall left maxillary antrum. There is ex vacuo dilatation of the frontal horns and to a lesser degree anterior mid bodies of the lateral ventricles. Moderate to fairly significant central volume loss not withstanding the aforementioned encephalomalacia and ex vacuo dilatation.
--- NOTE | 2017-11-24 13:24 | CT ---
Date of service: 11/24/2017 PROCEDURE: CT Cervical Spine without contrast HISTORY: Neck pain COMPARISON: No prior study available comparison TECHNIQUE: Axial computed tomography images were obtained of the cervical spine without the use of intravenous contrast. Coronal and sagittal reformatted images were created and reviewed. Radiation dose: Total exam DLP = 541.08 mGy-cm. This CT exam was performed using one or more of the following dose reduction techniques: Automated exposure control, adjustment of the mA and/or kV according to patient size, and/or use of iterative reconstruction technique. FINDINGS: VERTEBRAE: No acute compression fractures no retropulsed fragments. Vertebral bodies exhibit normal stature. There is straightening of the normal cervical lordosis possibly secondary to patient positioning gantry however the possibility of mild muscle spasm may contribute. Vertebral bodies and facets otherwise normally aligned. DISCS/SPINAL CANAL/NEURAL FORAMINA: Mild multilevel degenerative spondylosis. At the C5-C6 level, there is disc space narrowing, endplate eburnation with small anterior osteophyte formation. Small broad-based osteophytic ridge disc complexes also present and contiguous with mildly overgrown uncovertebral joints. Changes result in mild canal narrowing and cord compression. Exit foramina are narrowed bilaterally. Facet joints also hypertrophic. Similar but less severe changes seen at the C6-C7 level with small broad-based disc ridge complex that appears to be asymmetrically larger on the left than the right. Changes result in mild canal narrowing and flattening of the ventral surface of the cord more so on the left side. Exit foramina are marginal. At the C4-C5 level, there is adequate disc height. Small central and bilateral disc bulge indents the ventral surface of the thecal sac and cord. Central canal appears adequate. Facets are mildly overgrown. Exit foramina adequate on left and marginal on the right. At the C3-C4 level, there is minor disc space narrowing with small broad-based disc bulge ridge complex also contiguous with mildly overgrown uncovertebral joints. Facets are mildly hypertrophic bilaterally right greater than left. Exit foramina appear narrowed on the left than marginal on the right. PARASPINAL SOFT TISSUES: Unremarkable. OTHER FINDINGS: None. IMPRESSION: No acute fractures. Mild straightening of the normal cervical lordosis which may in part be due to patient positioning gantry however underlying element of muscle spasm may contribute. Mild multilevel degenerative spondylosis as described above.
--- NOTE | 2017-11-24 13:35 | RAD ---
Chest x-ray single frontal view History: Shortness of breath. Comparison: 04/20/2017 Findings: Small left pleural effusion with left basilar consolidative changes. Mild venous congestion. Cardiomegaly. Degenerative changes in the spine and shoulders. Impression: Small left pleural effusion with left basilar consolidative changes. Mild venous congestion. Cardiomegaly.
[2017-11-24 15:16] LABS: BASO # 0.1 K/uL (0.0-0.2); BASO % 0.6 % (0.0-2.0); EOS % 0.1 % (0.0-4.0); HEMOGLOBIN 12.4 g/dL (12.0-18.0); LYMPH # 2.4 K/uL (1.0-4.3); LYMPH % 13.8 % (20.0-40.0); MEAN CORPUSCULAR HEMOGLOBIN 29.6 pg (27.0-31.0); MEAN CORPUSCULAR HGB CONC 33.3 g/dL (33.0-37.0); MEAN PLATELET VOLUME 8.2 fL (7.2-11.7); MONO # 1.2 K/uL (0.0-0.8); MONO % 6.9 % (0.0-10.0); NEUT # 13.8 K/uL (1.8-7.0); NEUT % 78.6 % (50.0-75.0); RBC 4.17 Mil/uL (4.40-5.90); RED CELL DISTRIBUTION WIDTH 14.6 % (11.5-14.5)
[2017-11-24 15:17] LABS: WHITE BLOOD COUNT 17.6 K/uL (4.8-10.8)
[2017-11-24 16:07] LABS: ALBUMIN 4.6 g/dL (3.5-5.0); ALT/SGPT 26 U/L (21-72); AST/SGOT 72 U/L (17-59); CALCIUM 9.9 mg/dl (8.6-10.4); CK-MB 9.37 ng/mL (0.0-3.38); GFR NON-AFRICAN AMERICAN 5; LIPASE 540 U/L (23-300)
[2017-11-24 16:15] LABS: BLOOD UREA NITROGEN 155 mg/dL (9-20)
--- NOTE | 2017-11-24 17:02 | CP.PCM.PN ---
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 Patient is refusing to give history, refused to be examined. Refused blood work, central lines, states he doesn't want to be treated. Patient is otherwise a&ox3, know that he is at [facility], his name, and know today's date. Patient doesn't want to be admitted to ICU. Risk and benefit of refusing ICU admission and medical management was explained to the patient. Patient expressed understanding. Objective - Vital Signs/Intake and Output Vital Signs (last 24 hours): Temp Pulse Resp BP Pulse Ox 98 F 108 H 18 115/77 98 11/24/17 11:32 11/24/17 16:38 11/24/17 16:38 11/24/17 16:38 11/24/17 15:42 - Medications Medications: Current Medications Sodium Chloride (Sodium Chloride 0.9%) 1,000 mls @ 1,000 mls/hr IV .Q1H ONE Stop: 11/24/17 17:54 - Labs Labs: 11/24/17 15:09 11/24/17 15:09
[2017-11-24 18:59] LABS: SQUAMOUS EPITHIAL 1 /hpf (0-5); URINE BACTERIA RARE (<OCC); URINE BILIRUBIN NEGATIVE (NEGATIVE); URINE BLOOD 3+ (NEGATIVE); URINE CLARITY Hazy (Clear); URINE COLOR Yellow (YELLOW); URINE GLUCOSE (UA) NORMAL (Normal); URINE LEUKOCYTE ESTERASE NEG Leu/uL (Negative); URINE PROTEIN 1+ mg/dL (NEGATIVE); URINE UROBILINOGEN NORMAL mg/dL (0.2-1.0)
[2017-11-24] MEDS ORDERED: Vancomycin 1 gm/NS 200 ml 1 GM/200 ML BAG IVPB ONE (19:15)
[2017-11-24] MEDS: Azithromycin 500 MG in Sodium Chloride 0.9% 250 ML IVPB SCH (21:52)
--- NOTE | 2017-11-25 08:52 | CP.PCM.PN ---
Subjective - Date & Time of Evaluation Date of Evaluation: 11/25/17 Time of Evaluation: 08:51 - Subjective Subjective: Medicine Note for Dr. Garcia's Service 62 year old male with past medical history of HTN and seizure disorder was admitted to hospital for seizure with fall. He was found down by EMS and brought to ED. He was seen by the ICU team and refused treatment at that time. Of note, patient is disabled due to traumatic head injury 7-9 years ago. He is able to provide many details of his history but sometimes has difficulty recalling/articulating portions of the history. When asked if he had a seizure which precipitated his fall, he denies. He is further unable to provide a reason for why he fell, how long he was down for and other details. This morning he states that he is feeling better. He does not offer any acute complaints. No acute events reported by the nursing staff. PMHx: HTN, Seizure D/O, traumatic head injury SHx: denies Meds: Klonopin 2mg PO daily, Levetiracetam 1000mg PO BID, valsartan 320mg PO QD , norvasc 2.5mg PO daily, gemfibrozil 600mg po qd, hctz 12.5mg po qd, metoprolol succ 100mg po qd Allergies: penicillin Social: denies tobacco, ETOH or drug use. lives alone fam hx: denied Objective - Vital Signs/Intake and Output Vital Signs (last 24 hours): Temp Pulse Resp BP Pulse Ox 97.4 F L 107 H 20 117/75 95 11/24/17 23:30 11/25/17 01:00 11/24/17 23:30 11/24/17 23:30 11/24/17 23:30 Intake and Output: 11/25/17 11/25/17 06:59 18:59 Intake Total 1100 Output Total 400 Balance 700 - Medications Medications: Current Medications Amlodipine Besylate (Norvasc) 2.5 mg PO DAILY [facility] Enoxaparin Sodium (Lovenox) 40 mg SC DAILY [facility] Gemfibrozil (Lopid) 600 mg PO DAILY [facility] Hydrochlorothiazide (Microzide) 12.5 mg PO DAILY [facility] Azithromycin 500 mg/ Sodium (Chloride) 250 mls @ 250 mls/hr IVPB Q24H [facility] PRN Reason: Protocol Last Admin: 11/24/17 21:52 Dose: 250 mls/hr Dextrose (Dextrose 5% In Water 1000 Ml) 1,000 mls @ 100 mls/hr IV .Q10H [facility] Last Admin: 11/25/17 00:35 Dose: 100 mls/hr Levetiracetam (Keppra) 1,000 mg PO BID [facility] Losartan Potassium (Cozaar) 100 mg PO DAILY [facility] Metoprolol Succinate (Toprol Xl) 100 mg PO DAILY [facility]IEGO - Labs Labs: 11/24/17 15:09 11/24/17 15:09 - Constitutional Appears: No Acute Distress - Head Exam Additional comments: front head wound- historic/non-acute - Eye Exam Eye Exam: EOMI - ENT Exam ENT Exam: Mucous Membranes Moist - Respiratory Exam Respiratory Exam: Clear to Ausculation Bilateral, NORMAL BREATHING PATTERN - Cardiovascular Exam Cardiovascular Exam: REGULAR RHYTHM, +S1, +S2 - GI/Abdominal Exam GI & Abdominal Exam: Soft. absent: Tenderness - Neurological Exam Neurological Exam: Alert, Awake, Oriented x3 - Psychiatric Exam Psychiatric exam: Normal Affect, Normal Mood - Skin Skin Exam: Dry, Warm Assessment and Plan - Assessment and Plan (Free Text) Plan: TIERRA Renal Consult Place to Dr. Rodri Zayas appreciated Considering need for HD Dehydration vs Renal Disease vs Systemic Sources Renal u/s- B/L increase echogenicity Follow up protein electrophoresis F/U CBC, CMP, ESR, CRP Creatinine 1.9 (04/2017) and now 10.8 Will continue to monitor NaHCO3 drip Monitor I/O's AVOID- nsaid, tammy, arb, diuretics Seizure disorder Consult placed to neuro- Dr. Acosta- Chana appreciated Pt denies seizure/head trauma CT head- negative CXR Small L pleural effusion EKG NSR Keppra 1000 mg BID HTN Controlled Metoprolol 100mg PO QD Anxiety/Depression Buproprion 75mg PO QD Atarax 25mg PO q6hrs Insomnia Trazodone 50mg PO QHS Prophylaxis Pepcid SCDs Heparin 5k U q12hrs Psych consult placed to assess decision making capacity- Dr. Bernstein Recs appreciated Case discussed with Dr. Garcia All medical management as per Dr. Garcia
[2017-11-25] MEDS ORDERED: Enoxaparin 40 mg Syringe SC SCH ×2 (10:00)
[2017-11-25] MEDS ORDERED: Sodium Chloride 0.45% 1,000 ML IV SCH (10:15)
[2017-11-25 10:39] LABS: ABG ALLEN TEST PO; ARTERIAL BLOOD GAS HCO3 15.4 mmol/L (21-28); ARTERIAL BLOOD GAS HEMOGLOBIN 9.2 g/dL (11.7-17.4); ARTERIAL BLOOD GAS O2 SAT 100.3 % (95-98); ARTERIAL BLOOD GAS PCO2 23 mm/Hg (35-45); ARTERIAL BLOOD GAS PH 7.33 (7.35-7.45); ARTERIAL BLOOD GAS PO2 144 mm/Hg (80-100); ARTERIAL BLOOD GAS TCO2 12.8 mmol/L (22-28)
[2017-11-25] MEDS: Metoprolol Succinate 100 mg XL Tab PO SCH (10:45)
[2017-11-25] MEDS: Sodium Bicarbonate 8.4% 100 MEQ in Dextrose 5% In Water 1,000 ML IV SCH ×2 (11:28→21:26)
--- NOTE | 2017-11-25 12:34 | CP.PCM.CON ---
History of Present Illness - History of Present Illness History of Present Illness: Nephrology Consultation Note: Assessment: critical Acute Kidney Injury (N17.9) possibly due to ATN, rhabdomyolysis/dehydration Hypertensive Chronic Kidney Disease (I12.9) Chronic Kidney Disease (N18.3) Stage 3 with ? mg proteinuria (R80.9) likely due to TIERRA/HTN Hyperphosphatemia (E83.39), HTN (I12.9) Fall at home, seizure hypernatremia, HAGMA Plan likely need for renal replacement therapy soon d/w pt. he understood and agreeable for HD if needed. however need follow up labs to decide. pt had refused labs earlier. counselled to allow labs IVAN Hypertension control with meds as ordered. Maintain hemodynamics stable. Avoid hypotension. No ACEI/ARB due to recent TIERRA. hold norvasc/diuretics as well Monitor Input/Output, daily weights and renal function with basic metabolic panel started bicarb drip psych consult to assess his decisional capacity Check urine analysis, spot protein/creatinine, albumin/creatinine ratio, Check CPK, uric acid, renal and bladder sonogram Check HIV/Hep B and Hep C serology Check for 25-OH vitamin D, iPTH, phosphorus level. check urine tox, ABG further work up depending upon results. Dose meds/antibiotics for reduced GFR. Avoid fleets enema/magnesium based laxatives. Avoid nephrotoxins/NSAIDs/ iodinated contrast (unless needed emergently) Glycemic control Further work up/management as per primary team Thanks for allowing me to participate in care of your patient. Will follow patient with you. Please call if any Qs. Dr Mikie Cobb Office: [phone] Chief Complaint; fall at home Reason for consult: Acute Kidney Injury HPI: Pt is a 62 M with hx of seizure, hypertension (years) presented with complaints of fall at home and found to have severe TIERRA. pt was seen by ICU but he refused treatment as recommended. Denies OTC/herbal meds or NSAIDs No recent iodinated contrast exposure. Noted obvious episodes of low BP. pt denies CP/SOB/nausea/vomiting. feels better. reports decreased appetite for last few days and decreased urine output as well pt not aware about kidney disease in past. pt had TIERRA in apr 2017, cr was 1.9 at d/c ROS: Cardiovascular: No chest pain. Pulmonary: No shortness of breath Gastrointestinal: denies abdominal pain No nausea. No vomiting. Genitourinary: No pain while urinating. Denies blood in urine. noted decrease in UOP All other negative except as mentioned in HPI Physical Examination: General Appearance: Comfortable, in no acute respiratory distress, co-operative . Vitals reviewed and noted as below Head; Atraumatic, normocephalic ENT: no ulcers no thrush. Tongue is midline. Oropharynx: no rash or ulcers. superficial abrasion over upper nose+ EYES: Pupils are equal, round and reactive to light accommodation. Eye muscles and extraocular movement intact. Sclera is anicteric. Neck; supple no lymphadenopathy, no thyromegaly or bruit Lungs: Normal respiratory rate/effort. Breath sounds bilateral equal and clear Heart: Normal rate. s1s2 normal. No rub or gallop. Extremities: no edema. No varicose veins Neurological: Patient is alert, awake and oriented to person, place and time. No focal deficit. Strength bilateral appropriate and equal. mild asterixis + Skin: Warm and dry. Normal turgor. No rash. Palpitation: Normal elasticity for age Abdomen: Abdomen is soft. Bowel sounds +. There is no abdominal tenderness, no guarding/rigidity no organomegaly Psych: normal insight and flat affect/mood MSK: no joint tenderness or swelling. Digits and nails normal, no deformity : kidney or bladder not palpable Labs/imaging reviewed. Past medical history, past surgical history, family history, social history, allergy reviewed and noted as below Family hx: no hx of CKD. Rest non-contributory Past Patient History - Infectious Disease Hx of Infectious Diseases: None - Past Medical History & Family History Past Medical History?: Yes - Past Social History Smoking Status: Never Smoked - CARDIAC Hx Hypertension: Yes - PULMONARY Hx Respiratory Disorders: No - NEUROLOGICAL Hx Seizures: Yes (3 years ago) - HEENT Hx HEENT Problems: No - RENAL Hx Chronic Kidney Disease: Yes - ENDOCRINE/METABOLIC Hx Endocrine Disorders: No - HEMATOLOGICAL/ONCOLOGICAL Hx Blood Disorders: No - INTEGUMENTARY Hx Dermatological Problems: No - MUSCULOSKELETAL/RHEUMATOLOGICAL Hx Falls: Yes (2 days ago) - GASTROINTESTINAL Hx Gastrointestinal Disorders: No - GENITOURINARY/GYNECOLOGICAL Hx Genitourinary Disorders: No - PSYCHIATRIC Hx Substance Use: No - SURGICAL HISTORY Hx Herniorrhaphy: Yes (8-9 YRS AGO) - ANESTHESIA Hx Anesthesia: Yes Hx Anesthesia Reactions: No Hx Malignant Hyperthermia: No Has any member of the family had a problem w/ anesthesia?: No Meds Allergies/Adverse Reactions: Allergies Allergy/AdvReac Type Severity Reaction Status Date / Time Penicillins Allergy Mild RASH Verified 04/20/17 22:49 - Medications Medications: Current Medications Heparin Sodium (Porcine) (Heparin) 5,000 units SC Q12 [facility] Azithromycin 500 mg/ Sodium (Chloride) 250 mls @ 250 mls/hr IVPB Q24H [facility] PRN Reason: Protocol Last Admin: 11/24/17 21:52 Dose: 250 mls/hr Sodium Bicarbonate 100 meq/ (Dextrose) 1,100 mls @ 150 mls/hr IV .Q7H20M [facility] Last Admin: 11/25/17 11:28 Dose: 150 mls/hr Levetiracetam (Keppra) 1,000 mg PO BID [facility] Last Admin: 11/25/17 10:45 Dose: 1,000 mg Metoprolol Succinate (Toprol Xl) 100 mg PO DAILY [facility] Last Admin: 11/25/17 10:45 Dose: 100 mg Results - Vital Signs Recent Vital Signs: Last Vital Signs Temp 98.2 F 11/25/17 07:40 Pulse 85 11/25/17 08:00 Resp 20 11/25/17 07:40 BP 105/70 11/25/17 07:40 Pulse Ox 96 11/25/17 07:40 - Labs Result Diagrams: 11/24/17 15:09 11/24/17 15:09 Labs: Laboratory Results - last 24 hr 11/24/17 11/24/17 11/24/17 15:09 15:09 15:09 WBC 17.6 H D RBC 4.17 L Hgb 12.4 D Hct 37.1 MCV 89.0 D MCH 29.6 MCHC 33.3 RDW 14.6 H Plt Count 604 H D MPV 8.2 Neut % (Auto) 78.6 H Lymph % (Auto) 13.8 L [place] % (Auto) 6.9 Eos % (Auto) 0.1 Baso % (Auto) 0.6 Neut # (Auto) 13.8 H Lymph # (Auto) 2.4 [place] # (Auto) 1.2 H Eos # (Auto) 0.0 Baso # (Auto) 0.1 Puncture Site pCO2 pO2 HCO3 ABG pH ABG Total CO2 ABG O2 Saturation ABG Base Excess ABG Hemoglobin ABG Carboxyhemoglobin POC ABG HHb (Measured) ABG Methemoglobin Daniel Test A-a O2 Difference Respiratory Index Hgb O2 Saturation Liter Flow FiO2 Sodium 151 H Potassium 4.6 Chloride 114 H Carbon Dioxide 10 L* D Anion Gap 32 H BUN 155 H* D Creatinine 10.3 H* D Est GFR ( Amer) 6 Est GFR (Non-Af Amer) 5 Random Glucose 136 H Calcium 9.9 Total Bilirubin 0.8 AST 72 H D ALT 26 Alkaline Phosphatase 155 H Total Creatine Kinase 9675 H CK-MB (Mass) 9.37 H Troponin I 0.1190 Total Protein 9.2 H Albumin 4.6 Globulin 4.5 H Albumin/Globulin Ratio 1.0 Lipase 540 H Urine Color Urine Clarity Urine pH Ur Specific [place] Urine Protein Urine Glucose (UA) Urine Ketones Urine Blood Urine Nitrate Urine Bilirubin Urine Urobilinogen Ur Leukocyte Esterase Urine WBC (Auto) Urine RBC (Auto) Ur Squamous Epith Cells Urine Bacteria Alcohol, Quantitative < 10 11/24/17 11/25/17 18:26 10:25 WBC RBC Hgb Hct MCV MCH MCHC RDW Plt Count MPV Neut % (Auto) Lymph % (Auto) [place] % (Auto) Eos % (Auto) Baso % (Auto) Neut # (Auto) Lymph # (Auto) [place] # (Auto) Eos # (Auto) Baso # (Auto) Puncture Site Rra pCO2 23 L pO2 144 H HCO3 15.4 L ABG pH 7.33 L ABG Total CO2 12.8 L ABG O2 Saturation 100.3 H ABG Base Excess -12.3 L ABG Hemoglobin 9.2 L ABG Carboxyhemoglobin 2.1 H POC ABG HHb (Measured) -0.3 L ABG Methemoglobin 0.9 Daniel Test Po A-a O2 Difference 41.0 Respiratory Index 0.3 Hgb O2 Saturation 97.2 Liter Flow 2.0 FiO2 30.0 Sodium Potassium Chloride Carbon Dioxide Anion Gap BUN Creatinine Est GFR ( Amer) Est GFR (Non-Af Amer) Random Glucose Calcium Total Bilirubin AST ALT Alkaline Phosphatase Total Creatine Kinase CK-MB (Mass) Troponin I Total Protein Albumin Globulin Albumin/Globulin Ratio Lipase Urine Color Yellow Urine Clarity Hazy Urine pH 5.0 Ur Specific [place] 1.013 Urine Protein 1+ H Urine Glucose (UA) Normal Urine Ketones Negative Urine Blood 3+ H Urine Nitrate Negative Urine Bilirubin Negative Urine Urobilinogen Normal Ur Leukocyte Esterase Neg Urine WBC (Auto) 3 Urine RBC (Auto) 1 Ur Squamous Epith Cells 1 Urine Bacteria Rare Alcohol, Quantitative
--- NOTE | 2017-11-25 13:08 | US ---
Date of service: 11/25/2017 PROCEDURE: Ultrasound of the Kidneys HISTORY: abnormal labs COMPARISON: 04/21/2017 renal ultrasound. TECHNIQUE: Sonogram of the kidneys. FINDINGS: RIGHT KIDNEY: Measures: 9.5 x 5.0 x 5.0 cm. Normal size and contour. Increased diffuse cortical echogenicity -similar status No stone or mass seen. No hydronephrosis appreciated LEFT KIDNEY: Measures: 10.7 x 5.5 x 6.2 cm. Normal size and contour. Diffuse increased cortical echogenicity as before No stone, solid mass lesion or hydronephrosis visualized. Midpole left renal cyst- similar-appearing now measuring 2.2 x 2.2 x 1.6 cm OTHER FINDINGS: None. IMPRESSION: Bilateral renal cortical increased echogenicity consistent with medical renal disease -a similar sonographic appearance The left midpole approximately 2 cm cyst is similar appearing as well No interval hydronephrosis.
--- NOTE | 2017-11-25 13:49 | PCM.PSYCH ---
Initial Psychiatric Evaluation - Initial Psychiatric Evaluation Type of Admission: Voluntary Legal Status: Capacity Chief Complaint (in patient's own words): I'm feeling depressed.' History of Present Illness and Precipitating Events: Pt is 62yr old AAM, who lives alone, w past medical history of HTN and seizure disorder was admitted to hospital for seizure with fall. He was found down by EMS and brought to ED. He was seen by the ICU team and refused treatment at that time. Of note, patient is disabled due to traumatic head injury 7-9 years ago. Today psychiatry was consulted. As per the staff he was refusing all the blood work and necessary tests to rule out TIERRA. As per the staff he became somewhat irritable and agitated. However patient reports that no one has given him the details of blood tests and other treatment options. So he cannot give consent to any treatment without knowing about it. He reports history of depressed mood for more than 6 months. He reports of being alone and lonely. He reports depressed mood, at times poor sleep and poor appetite. However he denies any feelings of hopelessness, helplessness, and worthlessness. He denies any suicidal ideation or any homicidal ideation. Patient denies any past history of any inpatient psychiatric hospitalizations. He reports history of follow-up with a psychiatrist in the past. He denies any auditory or visual hallucinations or any paranoia. He denies any drinking or any substance abuse. PMH: HTN, Seizure disorder, H/O traumatic head injury Current Medications: Active Medications Generic Name Dose Route Start Last Admin Trade Name Freq PRN Reason Stop Dose Admin Heparin Sodium (Porcine) 5,000 units 11/25/17 10:00 11/25/17 11:40 Heparin SC 5,000 units Q12 JUAN DIEGO Administration Azithromycin 500 mg/ Sodium 250 mls @ 250 mls/hr 11/24/17 22:00 11/24/17 21: 52 Chloride IVPB 250 mls/hr Q24H JUAN DIEGO Administration Protocol Sodium Bicarbonate 100 meq/ 1,100 mls @ 150 mls/hr 11/25/17 10:45 11/25/17 11 :28 Dextrose IV 150 mls/hr .Q7H20M JUAN DIEGO Administration Levetiracetam 1,000 mg 11/25/17 10:00 11/25/17 10:45 Keppra PO 1,000 mg BID JUAN DIEGO Administration Metoprolol Succinate 100 mg 11/25/17 10:00 11/25/17 10:45 Toprol Xl PO 100 mg DAILY JUAN DIEGO Administration Past Psychiatric History - Past Psychiatric History Previous Treatment History: None Pertinent Medical Hx (Current Medical&Sleep Prob, Allergies): Allergies Allergy/AdvReac Type Severity Reaction Status Date / Time Penicillins Allergy Mild RASH Verified 04/20/17 22:49 Clonazepam 2 mg PO DAILY PRN #10 tablet 04/23/17 Gemfibrozil 600 mg PO DAILY #30 tablet 04/23/17 Hydrochlorothiazide [Microzide] 12.5 mg PO DAILY 11/24/17 Levetiracetam [Spritam] 1,000 mg PO BID 11/24/17 Metoprolol Succinate [Metoprolol Succinate Xl] 100 mg PO DAILY 11/24/17 Valsartan [Diovan] 320 mg PO DAILY 11/24/17 amLODIPine [Norvasc] 2.5 mg PO DAILY 11/24/17 Review of Systems - Review of Systems All systems: reviewed and no additional remarkable complaints except - Psychiatric Psychiatric: Anxiety, Depression, Irritability. absent: Suicidal Ideation Mental Status Examination - Personal Presentation Personal Presentation: Looks stated age - Affect Affect: Constricted, Depressed - Motor Activity Motor Activity: Calm - Reliability in Providing Information Reliability in Providing Information: Fair - Speech Speech: Organized - Mood Mood: Depressed, Anxious - Formal Thought Process Formal Thought Process: No Impairment - Obsessions/Compulsions Obsessions: No Compulsions: No - Cognitive Functions Orientation: Person, Place, Situation, Time Sensorium: Alert Attention/Concentration: Attentive Abstract Thinking: Gravel Switch Estimate of Intelligence: Below average Judgement: Intact, as evidence by: Good judgement, Intact, as evidence by: Insight regarding need for hospitalization - Risk Risk: Diminished functioning - Limitations Limitations: Living alone DSM 5 DX - DSM 5 DSM 5 Diagnosis: Major depressive disorder recurrent moderate - Recommended/Plan of Treatment Treatment Recommendations and Plan of Treatment: Major depressive disorder recurrent moderate CBT and Psychoeducation Supportive therapy, group therapy, individual therapy Wellbutrin 75 mg by mouth daily Trazodone 50 mg by mouth daily at bedtime Hydroxyzine 25 by mouth every 6 hours when necessary
--- NOTE | 2017-11-25 14:22 | RAD ---
Date of service: 11/25/2017 HISTORY: Picc placement COMPARISON: 11/24/2017 at 1155 hours FINDINGS: LUNGS: The left hemidiaphragm is more discrete. There is less suggestion of left basal pathology on the current study. PLEURA: No significant pleural effusion identified, no pneumothorax apparent. CARDIOVASCULAR: Borderline cardiomegaly. The pulmonary vasculature appears top-normal. Interval insertion right PICC line tip cavoatrial junction. OSSEOUS STRUCTURES: No significant abnormalities. VISUALIZED UPPER ABDOMEN: Normal. OTHER FINDINGS: None. IMPRESSION: Interval right PICC line insertion. . Tip cavoatrial junction. No pneumothorax
[2017-11-25 15:07] LABS: BASO % 0.4 % (0.0-2.0); EOS # 0.1 K/uL (0.0-0.7); EOS % 1.5 % (0.0-4.0); LYMPH # 1.3 K/uL (1.0-4.3); LYMPH % 14.5 % (20.0-40.0); MEAN CELL VOLUME 87.4 fL (80.0-94.0); MEAN CORPUSCULAR HGB CONC 34.3 g/dL (33.0-37.0); MEAN PLATELET VOLUME 7.7 fL (7.2-11.7); MONO # 0.7 K/uL (0.0-0.8); MONO % 7.2 % (0.0-10.0); NEUT % 76.4 % (50.0-75.0); NRBC % 0.1 % (0.0-2.0); RBC 2.93 Mil/uL (4.40-5.90); RED CELL DISTRIBUTION WIDTH 14.3 % (11.5-14.5); WHITE BLOOD COUNT 9.2 K/uL (4.8-10.8)
[2017-11-25 15:11] LABS: HEMOGLOBIN 8.8 g/dL (12.0-18.0)
[2017-11-25 15:53] LABS: HEPATITIS B SURFACE AG Negative (NEGATIVE)
[2017-11-25 15:58] LABS: HEPATITIS B CORE AB NEGATIVE (NEGATIVE)
[2017-11-25 16:10] LABS: HEPATITIS C ANTIBODY NEGATIVE (NEGATIVE)
[2017-11-25 16:57] LABS: ALBUMIN 3.4 g/dL (3.5-5.0); CALCIUM 8.6 mg/dl (8.6-10.4)
[2017-11-25] MEDS: Azithromycin 500 MG in Sodium Chloride 0.9% 250 ML IVPB SCH (21:26)
[2017-11-25 21:37] LABS: BARBITURATES, UR NEGATIVE (NEGATIVE); BENZODIAZEPINES, UR NEGATIVE (NEGATIVE); OPIATES, UR NEGATIVE (NEGATIVE); PHENCYCLIDINE, UR NEGATIVE (NEGATIVE)
--- NOTE | 2017-11-26 02:17 | CARD ---
APPROVED REPORT Date of service: 11/24/2017 EKG Measurement Heart [id number] <Conclusion> Sinus tachycardia Nonspecific ST and T wave abnormality Abnormal ECG
[2017-11-26] MEDS: Sodium Bicarbonate 8.4% 100 MEQ in Dextrose 5% In Water 1,000 ML IV SCH ×5 (04:04→16:50)
[2017-11-26 05:45] LABS: BASO % 0.3 % (0.0-2.0); EOS # 0.1 K/uL (0.0-0.7); EOS % 1.3 % (0.0-4.0); HEMOGLOBIN 7.8 g/dL (12.0-18.0); LYMPH # 1.7 K/uL (1.0-4.3); LYMPH % 21.4 % (20.0-40.0); MEAN CELL VOLUME 86.8 fL (80.0-94.0); MEAN CORPUSCULAR HGB CONC 34.5 g/dL (33.0-37.0); MEAN PLATELET VOLUME 7.8 fL (7.2-11.7); MONO # 0.7 K/uL (0.0-0.8); MONO % 9.1 % (0.0-10.0); NEUT # 5.5 K/uL (1.8-7.0); NEUT % 67.9 % (50.0-75.0); NRBC % 0.1 % (0.0-2.0); RBC 2.61 Mil/uL (4.40-5.90); RED CELL DISTRIBUTION WIDTH 14.4 % (11.5-14.5)
[2017-11-26 06:23] LABS: ALBUMIN 3.3 g/dL (3.5-5.0); CALCIUM 8.5 mg/dl (8.6-10.4); URIC ACID 15.5 mg/dL (3.5-8.5)
--- NOTE | 2017-11-26 07:22 | HP ---
Copied To: Amie Garcia MD Attending MD: Amie Garcia MD HISTORY OF PRESENT ILLNESS: This is a 62-year-old male, chief complaint weakness, fatigue, and tiredness. The patient came and was advised admission. The patient had seizure in the past and uses Depakote. PHYSICAL EXAMINATION: GENERAL: The patient is awake, alert, and oriented. VITAL SIGNS: Temperature 98, pulse 90. HEENT: Within normal limits. NECK: Supple. LUNGS: Symmetrical. HEART: Regular. ABDOMEN: Soft. EXTREMITIES: No edema. ASSESSMENT AND PLAN: The patient suffers from seizure. The patient to get bed rest, neuro checks, neurology and nephrology consult. Amie Garcia MD
[2017-11-26] MEDS ORDERED: D5W IV SCH ×6 (07:45→10:45)
[2017-11-26] MEDS ORDERED: POTASSIUM CH IV SCH ×6 (07:45→10:45)
[2017-11-26] MEDS: Potassium Chloride 20 mEq 100 ML IV SCH ×2 (08:18→10:52)
--- NOTE | 2017-11-26 08:58 | CP.PCM.PN ---
Subjective - Date & Time of Evaluation Date of Evaluation: 11/26/17 Time of Evaluation: 07:40 - Subjective Subjective: PGY3 Resident - Medicine Progress Note Patient seen and examined at bedside. No acute distress. No overnight events. This morning he states that he is feeling better. He does not offer any acute complaints. His PICC line is in place, he tolerated the procedure well. He is AAOx3 today. 12-point review of systems is otherwise negative without any additional acute complaints. Objective - Vital Signs/Intake and Output Vital Signs (last 24 hours): Temp Pulse Resp BP Pulse Ox 98.5 F 89 18 100/63 98 11/26/17 07:05 11/26/17 07:35 11/26/17 07:05 11/26/17 07:05 11/26/17 07:05 Intake and Output: 11/26/17 11/26/17 06:59 18:59 Intake Total 2400 Output Total 2050 Balance 350 - Medications Medications: Current Medications Bupropion HCl (Wellbutrin) 75 mg PO DAILY [facility] Last Admin: 11/25/17 17:36 Dose: 75 mg Heparin Sodium (Porcine) (Heparin) 5,000 units SC Q12 [facility] Last Admin: 11/25/17 22:27 Dose: 5,000 units Hydroxyzine HCl (Atarax) 25 mg PO Q6 PRN PRN Reason: Anxiety Azithromycin 500 mg/ Sodium (Chloride) 250 mls @ 250 mls/hr IVPB Q24H [facility] PRN Reason: Protocol Last Admin: 11/25/17 21:26 Dose: 250 mls/hr Sodium Bicarbonate 100 meq/ (Dextrose) 1,100 mls @ 150 mls/hr IV .Q7H20M [facility] Last Admin: 11/26/17 05:37 Dose: 150 mls/hr Potassium Chloride (Potassium Chloride 20 Meq/100 Ml) 100 mls @ 50 mls/hr IV .Q2H [facility] Stop: 11/26/17 12:14 Last Admin: 11/26/17 08:18 Dose: 50 mls/hr Levetiracetam (Keppra) 1,000 mg PO BID [facility] Last Admin: 11/25/17 17:36 Dose: 1,000 mg Metoprolol Succinate (Toprol Xl) 100 mg PO DAILY [facility] Last Admin: 11/25/17 10:45 Dose: 100 mg Trazodone HCl (Desyrel) 50 mg PO HS JUAN DIEGO Last Admin: 11/25/17 22:27 Dose: 50 mg - Labs Labs: 11/26/17 05:33 11/26/17 05:33 - Additional Findings Additional findings: - Constitutional Appears: No Acute Distress - Head Exam Additional comments: front head wound- historic/non-acute - Eye Exam Eye Exam: EOMI - ENT Exam ENT Exam: Mucous Membranes Moist - Respiratory Exam Respiratory Exam: Clear to Ausculation Bilateral, NORMAL BREATHING PATTERN - Cardiovascular Exam Cardiovascular Exam: REGULAR RHYTHM, +S1, +S2 - GI/Abdominal Exam GI & Abdominal Exam: Soft. absent: Tenderness - Neurological Exam Neurological Exam: Alert, Awake, Oriented x3 - Psychiatric Exam Psychiatric exam: Normal Affect, Normal Mood - Skin Skin Exam: Dry, Warm Assessment and Plan - Assessment and Plan (Free Text) Assessment: TIERRA Renal Consult Place to Dr. Rodri Zayas appreciated Considering need for HD Dehydration vs Renal Disease vs Systemic Sources Renal u/s- B/L increase echogenicity f/u protein electrophoresis ESR 107; CRP 60.4 Creatinine 1.9 (04/2017) and now 10.8 Will continue to monitor NaHCO3 drip Monitor I/O's AVOID- nsaid, tammy, arb, diuretics Seizure disorder Consult placed to neuro- Dr. Perlita Zayas appreciated Pt denies seizure/head trauma CT head- negative CXR Small L pleural effusion EKG NSR Keppra 1000 mg BID HTN Controlled Metoprolol 100mg PO QD Anemia 11/26: Hgb 7.8 dropped from 8.8 yesterday hemeonc consult, Dr. Wilson, f/u recs Transfuse 1u PRBC f/u fecal occult f/u Fe, Ferritin %sat, tibc, transferrin Anxiety/Depression Buproprion 75mg PO QD Atarax 25mg PO q6hrs Insomnia Trazodone 50mg PO QHS Electrolyte Imbalance Hypokalemia, K2.8 - KCl 10 IVPB q4H x4; KCl 10 PO x1 Vitamin D Deficiency Vit D 25-OH level <12.8; Start Ergocalciferol 50,000 1 tab q7D Prophylaxis Pepcid SCDs Heparin 5k U q12hrs Psych consult placed to assess decision making capacity- Dr. Bernstein, Recs appreciated Case discussed with attending. All medical management as per Dr. Verenice Garcia.
[2017-11-26] MEDS ORDERED: Ergocalciferol 50,000 Intl Units Cap PO SCH (09:30)
[2017-11-26] MEDS ORDERED: Pneumococcal 23-Valent Vaccine IM ONE (10:00)
[2017-11-26] MEDS: Potassium Chloride 10 mEq ER Tab PO SCH (10:48)
[2017-11-26] MEDS: Metoprolol Succinate 100 mg XL Tab PO SCH (10:49)
[2017-11-26] MEDS ORDERED: DiphenhydrAMINE 50 mg/ml Inj IVP PRN (12:51)
--- NOTE | 2017-11-26 13:23 | CP.PCM.CON ---
History of Present Illness - History of Present Illness History of Present Illness: 62 year old male with a history of seizure disorder, HTN, admitted s/p fall and loss of consciousness, found to be in renal failure and anemic. The patient is not aware of blood problems in the past. He denies abnormal bleeding and bruising. His hgb kerri was 7.8. Past medical history: seizure disorder, HTN Past surgical history: Denies Family history: Denies hematologic and oncologic problems Social history: Denies tobacco, alcohol, and illicit drug use. Allergies: Penicillins Review of systems: All remaining review of systems including HEENT, cardiovascular, respiratory, gastrointestinal, genitourinary, musculoskeletal, dermatologic, neurologic, and psychiatric are negative unless mentioned in the HPI. Past Patient History - Infectious Disease Hx of Infectious Diseases: None - Past Medical History & Family History Past Medical History?: Yes - Past Social History Smoking Status: Never Smoked - CARDIAC Hx Hypertension: Yes - PULMONARY Hx Respiratory Disorders: No - NEUROLOGICAL Hx Seizures: Yes (3 years ago) - HEENT Hx HEENT Problems: No - RENAL Hx Chronic Kidney Disease: Yes - ENDOCRINE/METABOLIC Hx Endocrine Disorders: No - HEMATOLOGICAL/ONCOLOGICAL Hx Blood Disorders: No - INTEGUMENTARY Hx Dermatological Problems: No - MUSCULOSKELETAL/RHEUMATOLOGICAL Hx Falls: Yes (2 days ago) - GASTROINTESTINAL Hx Gastrointestinal Disorders: No - GENITOURINARY/GYNECOLOGICAL Hx Genitourinary Disorders: No - PSYCHIATRIC Hx Substance Use: No - SURGICAL HISTORY Hx Herniorrhaphy: Yes (8-9 YRS AGO) - ANESTHESIA Hx Anesthesia: Yes Hx Anesthesia Reactions: No Hx Malignant Hyperthermia: No Has any member of the family had a problem w/ anesthesia?: No Meds Allergies/Adverse Reactions: Allergies Allergy/AdvReac Type Severity Reaction Status Date / Time Penicillins Allergy Mild RASH Verified 04/20/17 22:49 - Medications Medications: Current Medications Acetaminophen (Tylenol 325mg Tab) 650 mg PO ONCE PRN PRN Reason: 30min prior to transfusion Last Admin: 11/26/17 13:12 Dose: 650 mg Bupropion HCl (Wellbutrin) 75 mg PO DAILY JUAN DIEGO Last Admin: 11/26/17 10:47 Dose: 75 mg Diphenhydramine HCl (Benadryl) 25 mg IVP ONCE PRN PRN Reason: 30min prior to transfusion Last Admin: 11/26/17 13:18 Dose: 25 mg Ergocalciferol (Drisdol 50,000 Intl Units Cap) 1 cap PO Q7D [facility] Last Admin: 11/26/17 10:49 Dose: 1 cap Heparin Sodium (Porcine) (Heparin) 5,000 units SC Q12 [facility] Last Admin: 11/26/17 10:49 Dose: 5,000 units Hydroxyzine HCl (Atarax) 25 mg PO Q6 PRN PRN Reason: Anxiety Azithromycin 500 mg/ Sodium (Chloride) 250 mls @ 250 mls/hr IVPB Q24H [facility] PRN Reason: Protocol Last Admin: 11/25/17 21:26 Dose: 250 mls/hr Sodium Bicarbonate 100 meq/ (Dextrose) 1,100 mls @ 150 mls/hr IV .Q7H20M [facility] Last Admin: 11/26/17 08:45 Dose: Not Given Potassium Chloride (Potassium Chloride 10 Meq/100 Ml) 10 meq in 100 mls @ 100 mls/hr IVPB Q4H [facility] Stop: 11/26/17 22:29 Last Admin: 11/26/17 09:39 Dose: Not Given Levetiracetam (Keppra) 1,000 mg PO BID [facility] Last Admin: 11/26/17 10:49 Dose: 1,000 mg Metoprolol Succinate (Toprol Xl) 100 mg PO DAILY [facility] Last Admin: 11/26/17 10:49 Dose: 100 mg Potassium Chloride (Klor-Con 10) 10 meq PO BRK [facility] Last Admin: 11/26/17 10:48 Dose: 10 meq Trazodone HCl (Desyrel) 50 mg PO HS [facility] Last Admin: 11/25/17 22:27 Dose: 50 mg Physical Exam - Head Exam Head Exam: ATRAUMATIC - Eye Exam Eye Exam: Normal appearance - ENT Exam ENT Exam: Mucous Membranes Dry - Respiratory Exam Respiratory Exam: NORMAL BREATHING PATTERN - Cardiovascular Exam Cardiovascular Exam: +S1, +S2 - GI/Abdominal Exam GI & Abdominal Exam: Normal Bowel Sounds Results - Vital Signs Recent Vital Signs: Last Vital Signs Temp 98.5 F 11/26/17 07:05 Pulse 89 11/26/17 07:35 Resp 18 11/26/17 07:05 BP 100/63 11/26/17 07:05 Pulse Ox 98 11/26/17 07:05 - Labs Result Diagrams: 11/27/17 12:34 11/27/17 12:34 Labs: Laboratory Results - last 24 hr 11/25/17 11/25/17 11/25/17 14:58 14:58 14:58 WBC 9.2 RBC 2.93 L Hgb 8.8 L D Hct 25.6 L MCV 87.4 MCH 30.0 MCHC 34.3 RDW 14.3 Plt Count 403 H D MPV 7.7 Neut % (Auto) 76.4 H Lymph % (Auto) 14.5 L [place] % (Auto) 7.2 Eos % (Auto) 1.5 Baso % (Auto) 0.4 Neut # (Auto) 7.0 Lymph # (Auto) 1.3 [place] # (Auto) 0.7 Eos # (Auto) 0.1 Baso # (Auto) 0.0 ESR Sodium 145 Potassium 3.2 L Chloride 114 H Carbon Dioxide 14 L Anion Gap 21 H BUN 126 H* Creatinine 5.6 H Est GFR ( Amer) 13 Est GFR (Non-Af Amer) 10 Random Glucose 137 H Lactic Acid Uric Acid Calcium 8.6 Phosphorus 3.8 Magnesium 2.5 H Total Bilirubin 0.6 AST 70 H ALT 24 Alkaline Phosphatase 93 Total Creatine Kinase 5335 H C-Reactive Protein Total Protein 6.8 Albumin 3.4 L D Globulin 3.4 Albumin/Globulin Ratio 1.0 Vitamin B12 326 25-OH Vitamin D Total TSH 3rd Generation PTH Intact Whole Molec 529 H Urine Opiates Screen Urine Methadone Screen Ur Barbiturates Screen Ur Phencyclidine Scrn Ur Amphetamines Screen U Benzodiazepines Scrn U Oth Cocaine Metabols U Cannabinoids Screen Hep Bs Antigen Hep Bs Antibody Hep B Core IgM Ab Hepatitis C Antibody HIV 1&2 Antibody Screen Blood Type Antibody Screen 11/25/17 11/25/17 11/25/17 14:58 14:58 14:58 WBC RBC Hgb Hct MCV MCH MCHC RDW Plt Count MPV Neut % (Auto) Lymph % (Auto) [place] % (Auto) Eos % (Auto) Baso % (Auto) Neut # (Auto) Lymph # (Auto) [place] # (Auto) Eos # (Auto) Baso # (Auto) ESR Sodium Potassium Chloride Carbon Dioxide Anion Gap BUN Creatinine Est GFR ( Amer) Est GFR (Non-Af Amer) Random Glucose Lactic Acid Uric Acid Calcium Phosphorus Magnesium Total Bilirubin AST ALT Alkaline Phosphatase Total Creatine Kinase C-Reactive Protein Total Protein Albumin Globulin Albumin/Globulin Ratio Vitamin B12 25-OH Vitamin D Total TSH 3rd Generation PTH Intact Whole Molec Urine Opiates Screen Urine Methadone Screen Ur Barbiturates Screen Ur Phencyclidine Scrn Ur Amphetamines Screen U Benzodiazepines Scrn U Oth Cocaine Metabols U Cannabinoids Screen Hep Bs Antigen Negative Hep Bs Antibody Negative Hep B Core IgM Ab Negative Hepatitis C Antibody Negative HIV 1&2 Antibody Screen Negative Blood Type Antibody Screen 11/25/17 11/25/17 11/25/17 15:43 15:52 21:11 WBC RBC Hgb Hct MCV MCH MCHC RDW Plt Count MPV Neut % (Auto) Lymph % (Auto) [place] % (Auto) Eos % (Auto) Baso % (Auto) Neut # (Auto) Lymph # (Auto) [place] # (Auto) Eos # (Auto) Baso # (Auto) ESR 107 H Sodium Potassium Chloride Carbon Dioxide Anion Gap BUN Creatinine Est GFR ( Amer) Est GFR (Non-Af Amer) Random Glucose Lactic Acid Uric Acid Calcium Phosphorus Magnesium Total Bilirubin AST ALT Alkaline Phosphatase Total Creatine Kinase C-Reactive Protein 60.40 H Total Protein Albumin Globulin Albumin/Globulin Ratio Vitamin B12 25-OH Vitamin D Total TSH 3rd Generation PTH Intact Whole Molec Urine Opiates Screen Negative Urine Methadone Screen Negative Ur Barbiturates Screen Negative Ur Phencyclidine Scrn Negative Ur Amphetamines Screen Negative U Benzodiazepines Scrn Negative U Oth Cocaine Metabols Negative U Cannabinoids Screen Negative Hep Bs Antigen Hep Bs Antibody Hep B Core IgM Ab Hepatitis C Antibody HIV 1&2 Antibody Screen Blood Type Antibody Screen 11/25/17 11/26/17 11/26/17 21:35 05:33 05:33 WBC 8.0 RBC 2.61 L Hgb 7.8 L Hct 22.7 L MCV 86.8 MCH 30.0 MCHC 34.5 RDW 14.4 Plt Count 350 MPV 7.8 Neut % (Auto) 67.9 Lymph % (Auto) 21.4 [place] % (Auto) 9.1 Eos % (Auto) 1.3 Baso % (Auto) 0.3 Neut # (Auto) 5.5 Lymph # (Auto) 1.7 [place] # (Auto) 0.7 Eos # (Auto) 0.1 Baso # (Auto) 0.0 ESR Sodium Potassium Chloride Carbon Dioxide Anion Gap BUN Creatinine Est GFR ( Amer) Est GFR (Non-Af Amer) Random Glucose Lactic Acid 1.0 Uric Acid Calcium Phosphorus 3.2 Magnesium 2.0 Total Bilirubin AST ALT Alkaline Phosphatase Total Creatine Kinase C-Reactive Protein Total Protein Albumin Globulin Albumin/Globulin Ratio Vitamin B12 25-OH Vitamin D Total TSH 3rd Generation 0.77 PTH Intact Whole Molec Urine Opiates Screen Urine Methadone Screen Ur Barbiturates Screen Ur Phencyclidine Scrn Ur Amphetamines Screen U Benzodiazepines Scrn U Oth Cocaine Metabols U Cannabinoids Screen Hep Bs Antigen Hep Bs Antibody Hep B Core IgM Ab Hepatitis C Antibody HIV 1&2 Antibody Screen Blood Type Antibody Screen 11/26/17 11/26/17 11/26/17 05:33 05:33 08:13 WBC RBC Hgb Hct MCV MCH MCHC RDW Plt Count MPV Neut % (Auto) Lymph % (Auto) [place] % (Auto) Eos % (Auto) Baso % (Auto) Neut # (Auto) Lymph # (Auto) [place] # (Auto) Eos # (Auto) Baso # (Auto) ESR Sodium 146 Potassium 2.8 L Chloride 109 H Carbon Dioxide 20 L Anion Gap 20 BUN 110 H* Creatinine 4.6 H Est GFR ( Amer) 16 Est GFR (Non-Af Amer) 13 Random Glucose 131 H Lactic Acid Uric Acid 15.5 H Calcium 8.5 L Phosphorus Magnesium Total Bilirubin 0.8 AST 49 ALT 31 Alkaline Phosphatase 83 Total Creatine Kinase 2649 H C-Reactive Protein Total Protein 6.5 Albumin 3.3 L Globulin 3.2 Albumin/Globulin Ratio 1.0 Vitamin B12 25-OH Vitamin D Total < 12.8 L TSH 3rd Generation PTH Intact Whole Molec Urine Opiates Screen Urine Methadone Screen Ur Barbiturates Screen Ur Phencyclidine Scrn Ur Amphetamines Screen U Benzodiazepines Scrn U Oth Cocaine Metabols U Cannabinoids Screen Hep Bs Antigen Hep Bs Antibody Hep B Core IgM Ab Hepatitis C Antibody HIV 1&2 Antibody Screen Blood Type O POSITIVE Antibody Screen Negative Assessment & Plan (1) Anemia Assessment and Plan: will check retic count, b12, folate, ferritin, fobt to further characterize ? anemia of CKD monoclonal protein work up, HIV/hepatitis panel sent transfusion support PRN Thank you for this interesting consult. Status: Acute
[2017-11-26 13:41] LABS: IRON 20 ug/dL (49-181)
[2017-11-26 13:51] LABS: % IRON SATURATION 10 (20-55); TOTAL IRON BINDING CAPACITY 193 ug/dL (250-450)
--- NOTE | 2017-11-26 14:07 | CP.PCM.CON ---
History of Present Illness - History of Present Illness History of Present Illness: 62 yr old male with hypertension and epilepsy, who presented to the ED after a fall that he sustained yesterday after which he lost consciousness for about 30 minutes, denying any dizziness, diaphoresis, chest pain, aphasia, or weakness. He was found to have anemia so is nowbeing evaluated for a blood transfusion. PMH/PSH: as abo FH/SH: no tobacco, no etoh. unemployed currently. All: nkda. On exam: Normal neurological examination. Past Patient History - Infectious Disease Hx of Infectious Diseases: None - Past Medical History & Family History Past Medical History?: Yes - Past Social History Smoking Status: Never Smoked - CARDIAC Hx Hypertension: Yes - PULMONARY Hx Respiratory Disorders: No - NEUROLOGICAL Hx Seizures: Yes (3 years ago) - HEENT Hx HEENT Problems: No - RENAL Hx Chronic Kidney Disease: Yes - ENDOCRINE/METABOLIC Hx Endocrine Disorders: No - HEMATOLOGICAL/ONCOLOGICAL Hx Blood Disorders: No - INTEGUMENTARY Hx Dermatological Problems: No - MUSCULOSKELETAL/RHEUMATOLOGICAL Hx Falls: Yes (2 days ago) - GASTROINTESTINAL Hx Gastrointestinal Disorders: No - GENITOURINARY/GYNECOLOGICAL Hx Genitourinary Disorders: No - PSYCHIATRIC Hx Substance Use: No - SURGICAL HISTORY Hx Herniorrhaphy: Yes (8-9 YRS AGO) - ANESTHESIA Hx Anesthesia: Yes Hx Anesthesia Reactions: No Hx Malignant Hyperthermia: No Has any member of the family had a problem w/ anesthesia?: No Meds Allergies/Adverse Reactions: Allergies Allergy/AdvReac Type Severity Reaction Status Date / Time Penicillins Allergy Mild RASH Verified 04/20/17 22:49 - Medications Medications: Current Medications Acetaminophen (Tylenol 325mg Tab) 650 mg PO ONCE PRN PRN Reason: 30min prior to transfusion Last Admin: 11/26/17 13:12 Dose: 650 mg Bupropion HCl (Wellbutrin) 75 mg PO DAILY [facility] Last Admin: 11/26/17 10:47 Dose: 75 mg Diphenhydramine HCl (Benadryl) 25 mg IVP ONCE PRN PRN Reason: 30min prior to transfusion Last Admin: 11/26/17 13:18 Dose: 25 mg Ergocalciferol (Drisdol 50,000 Intl Units Cap) 1 cap PO Q7D [facility] Last Admin: 11/26/17 10:49 Dose: 1 cap Heparin Sodium (Porcine) (Heparin) 5,000 units SC Q12 [facility] Last Admin: 11/26/17 10:49 Dose: 5,000 units Hydroxyzine HCl (Atarax) 25 mg PO Q6 PRN PRN Reason: Anxiety Azithromycin 500 mg/ Sodium (Chloride) 250 mls @ 250 mls/hr IVPB Q24H [facility] PRN Reason: Protocol Last Admin: 11/25/17 21:26 Dose: 250 mls/hr Sodium Bicarbonate 100 meq/ (Dextrose) 1,100 mls @ 150 mls/hr IV .Q7H20M [facility] Last Admin: 11/26/17 08:45 Dose: Not Given Potassium Chloride (Potassium Chloride 10 Meq/100 Ml) 10 meq in 100 mls @ 100 mls/hr IVPB Q4H [facility] Stop: 11/26/17 22:29 Last Admin: 11/26/17 09:39 Dose: Not Given Levetiracetam (Keppra) 1,000 mg PO BID [facility] Last Admin: 11/26/17 10:49 Dose: 1,000 mg Metoprolol Succinate (Toprol Xl) 100 mg PO DAILY [facility] Last Admin: 11/26/17 10:49 Dose: 100 mg Potassium Chloride (Klor-Con 10) 10 meq PO BRK [facility] Last Admin: 11/26/17 10:48 Dose: 10 meq Trazodone HCl (Desyrel) 50 mg PO HS [facility] Last Admin: 11/25/17 22:27 Dose: 50 mg Results - Vital Signs Recent Vital Signs: Last Vital Signs Temp 98.6 F 11/26/17 13:59 Pulse 87 11/26/17 13:59 Resp 16 11/26/17 13:59 BP 105/66 11/26/17 13:59 Pulse Ox 98 11/26/17 07:05 - Labs Result Diagrams: 11/26/17 05:33 11/26/17 05:33 Labs: Laboratory Results - last 24 hr 11/25/17 11/25/17 11/25/17 14:58 14:58 14:58 WBC 9.2 RBC 2.93 L Hgb 8.8 L D Hct 25.6 L MCV 87.4 MCH 30.0 MCHC 34.3 RDW 14.3 Plt Count 403 H D MPV 7.7 Neut % (Auto) 76.4 H Lymph % (Auto) 14.5 L [place] % (Auto) 7.2 Eos % (Auto) 1.5 Baso % (Auto) 0.4 Neut # (Auto) 7.0 Lymph # (Auto) 1.3 [place] # (Auto) 0.7 Eos # (Auto) 0.1 Baso # (Auto) 0.0 ESR Retic Count Sodium 145 Potassium 3.2 L Chloride 114 H Carbon Dioxide 14 L Anion Gap 21 H BUN 126 H* Creatinine 5.6 H Est GFR ( Amer) 13 Est GFR (Non-Af Amer) 10 Random Glucose 137 H Lactic Acid Uric Acid Calcium 8.6 Phosphorus 3.8 Magnesium 2.5 H Iron TIBC % Saturation Ferritin Total Bilirubin 0.6 AST 70 H ALT 24 Alkaline Phosphatase 93 Total Creatine Kinase 5335 H C-Reactive Protein Total Protein 6.8 Albumin 3.4 L D Globulin 3.4 Albumin/Globulin Ratio 1.0 Vitamin B12 326 25-OH Vitamin D Total TSH 3rd Generation PTH Intact Whole Molec 529 H Urine Opiates Screen Urine Methadone Screen Ur Barbiturates Screen Ur Phencyclidine Scrn Ur Amphetamines Screen U Benzodiazepines Scrn U Oth Cocaine Metabols U Cannabinoids Screen Hep Bs Antigen Hep Bs Antibody Hep B Core IgM Ab Hepatitis C Antibody HIV 1&2 Antibody Screen Blood Type Antibody Screen 11/25/17 11/25/17 11/25/17 14:58 14:58 14:58 WBC RBC Hgb Hct MCV MCH MCHC RDW Plt Count MPV Neut % (Auto) Lymph % (Auto) [place] % (Auto) Eos % (Auto) Baso % (Auto) Neut # (Auto) Lymph # (Auto) [place] # (Auto) Eos # (Auto) Baso # (Auto) ESR Retic Count Sodium Potassium Chloride Carbon Dioxide Anion Gap BUN Creatinine Est GFR ( Amer) Est GFR (Non-Af Amer) Random Glucose Lactic Acid Uric Acid Calcium Phosphorus Magnesium Iron TIBC % Saturation Ferritin Total Bilirubin AST ALT Alkaline Phosphatase Total Creatine Kinase C-Reactive Protein Total Protein Albumin Globulin Albumin/Globulin Ratio Vitamin B12 25-OH Vitamin D Total TSH 3rd Generation PTH Intact Whole Molec Urine Opiates Screen Urine Methadone Screen Ur Barbiturates Screen Ur Phencyclidine Scrn Ur Amphetamines Screen U Benzodiazepines Scrn U Oth Cocaine Metabols U Cannabinoids Screen Hep Bs Antigen Negative Hep Bs Antibody Negative Hep B Core IgM Ab Negative Hepatitis C Antibody Negative HIV 1&2 Antibody Screen Negative Blood Type Antibody Screen 11/25/17 11/25/17 11/25/17 15:43 15:52 21:11 WBC RBC Hgb Hct MCV MCH MCHC RDW Plt Count MPV Neut % (Auto) Lymph % (Auto) [place] % (Auto) Eos % (Auto) Baso % (Auto) Neut # (Auto) Lymph # (Auto) [place] # (Auto) Eos # (Auto) Baso # (Auto) ESR 107 H Retic Count Sodium Potassium Chloride Carbon Dioxide Anion Gap BUN Creatinine Est GFR ( Amer) Est GFR (Non-Af Amer) Random Glucose Lactic Acid Uric Acid Calcium Phosphorus Magnesium Iron TIBC % Saturation Ferritin Total Bilirubin AST ALT Alkaline Phosphatase Total Creatine Kinase C-Reactive Protein 60.40 H Total Protein Albumin Globulin Albumin/Globulin Ratio Vitamin B12 25-OH Vitamin D Total TSH 3rd Generation PTH Intact Whole Molec Urine Opiates Screen Negative Urine Methadone Screen Negative Ur Barbiturates Screen Negative Ur Phencyclidine Scrn Negative Ur Amphetamines Screen Negative U Benzodiazepines Scrn Negative U Oth Cocaine Metabols Negative U Cannabinoids Screen Negative Hep Bs Antigen Hep Bs Antibody Hep B Core IgM Ab Hepatitis C Antibody HIV 1&2 Antibody Screen Blood Type Antibody Screen 11/25/17 11/26/17 11/26/17 21:35 05:33 05:33 WBC 8.0 RBC 2.61 L Hgb 7.8 L Hct 22.7 L MCV 86.8 MCH 30.0 MCHC 34.5 RDW 14.4 Plt Count 350 MPV 7.8 Neut % (Auto) 67.9 Lymph % (Auto) 21.4 [place] % (Auto) 9.1 Eos % (Auto) 1.3 Baso % (Auto) 0.3 Neut # (Auto) 5.5 Lymph # (Auto) 1.7 [place] # (Auto) 0.7 Eos # (Auto) 0.1 Baso # (Auto) 0.0 ESR Retic Count 1.3 Sodium Potassium Chloride Carbon Dioxide Anion Gap BUN Creatinine Est GFR ( Amer) Est GFR (Non-Af Amer) Random Glucose Lactic Acid 1.0 Uric Acid Calcium Phosphorus 3.2 Magnesium 2.0 Iron TIBC % Saturation Ferritin Total Bilirubin AST ALT Alkaline Phosphatase Total Creatine Kinase C-Reactive Protein Total Protein Albumin Globulin Albumin/Globulin Ratio Vitamin B12 25-OH Vitamin D Total TSH 3rd Generation 0.77 PTH Intact Whole Molec Urine Opiates Screen Urine Methadone Screen Ur Barbiturates Screen Ur Phencyclidine Scrn Ur Amphetamines Screen U Benzodiazepines Scrn U Oth Cocaine Metabols U Cannabinoids Screen Hep Bs Antigen Hep Bs Antibody Hep B Core IgM Ab Hepatitis C Antibody HIV 1&2 Antibody Screen Blood Type Antibody Screen 11/26/17 11/26/17 11/26/17 05:33 05:33 08:13 WBC RBC Hgb Hct MCV MCH MCHC RDW Plt Count MPV Neut % (Auto) Lymph % (Auto) [place] % (Auto) Eos % (Auto) Baso % (Auto) Neut # (Auto) Lymph # (Auto) [place] # (Auto) Eos # (Auto) Baso # (Auto) ESR Retic Count Sodium 146 Potassium 2.8 L Chloride 109 H Carbon Dioxide 20 L Anion Gap 20 BUN 110 H* Creatinine 4.6 H Est GFR ( Amer) 16 Est GFR (Non-Af Amer) 13 Random Glucose 131 H Lactic Acid Uric Acid 15.5 H Calcium 8.5 L Phosphorus Magnesium Iron TIBC % Saturation Ferritin 387.0 Total Bilirubin 0.8 AST 49 ALT 31 Alkaline Phosphatase 83 Total Creatine Kinase 2649 H C-Reactive Protein Total Protein 6.5 Albumin 3.3 L Globulin 3.2 Albumin/Globulin Ratio 1.0 Vitamin B12 25-OH Vitamin D Total < 12.8 L TSH 3rd Generation PTH Intact Whole Molec Urine Opiates Screen Urine Methadone Screen Ur Barbiturates Screen Ur Phencyclidine Scrn Ur Amphetamines Screen U Benzodiazepines Scrn U Oth Cocaine Metabols U Cannabinoids Screen Hep Bs Antigen Hep Bs Antibody Hep B Core IgM Ab Hepatitis C Antibody HIV 1&2 Antibody Screen Blood Type O POSITIVE Antibody Screen Negative 11/26/17 13:32 WBC RBC Hgb Hct MCV MCH MCHC RDW Plt Count MPV Neut % (Auto) Lymph % (Auto) [place] % (Auto) Eos % (Auto) Baso % (Auto) Neut # (Auto) Lymph # (Auto) [place] # (Auto) Eos # (Auto) Baso # (Auto) ESR Retic Count Sodium Potassium Chloride Carbon Dioxide Anion Gap BUN Creatinine Est GFR ( Amer) Est GFR (Non-Af Amer) Random Glucose Lactic Acid Uric Acid Calcium Phosphorus Magnesium Iron 20 L TIBC 193 L % Saturation 10 L Ferritin Total Bilirubin AST ALT Alkaline Phosphatase Total Creatine Kinase C-Reactive Protein Total Protein Albumin Globulin Albumin/Globulin Ratio Vitamin B12 25-OH Vitamin D Total TSH 3rd Generation PTH Intact Whole Molec Urine Opiates Screen Urine Methadone Screen Ur Barbiturates Screen Ur Phencyclidine Scrn Ur Amphetamines Screen U Benzodiazepines Scrn U Oth Cocaine Metabols U Cannabinoids Screen Hep Bs Antigen Hep Bs Antibody Hep B Core IgM Ab Hepatitis C Antibody HIV 1&2 Antibody Screen Blood Type Antibody Screen - Imaging and Cardiology CT scan - head Status: Image reviewed by me, Report reviewed by me (ct head: shows white matter disease, no stroke. ) Assessment & Plan - Assessment and Plan (Free Text) Assessment: 62 yr old male with long standing epilepsy who had an event that is unrelated to his seizures. Plan: 1. continue keppra at current dosage Follow up with neurology outpatient. Thank you Dr perez
--- NOTE | 2017-11-26 14:52 | CP.PCM.PN ---
Subjective - Date & Time of Evaluation Date of Evaluation: 11/26/17 Time of Evaluation: 14:46 - Subjective Subjective: Nephrology Consultation Note: Assessment: stable Acute Kidney Injury (N17.9) possibly due to ATN, rhabdomyolysis/dehydration: improving Hypertensive Chronic Kidney Disease (I12.9) Chronic Kidney Disease (N18.3) Stage 3 with ? mg proteinuria (R80.9) likely due to TIERRA/HTN Hyperphosphatemia (E83.39), HTN (I12.9) Fall at home, seizure hypernatremia, HAGMA Anemia .,hypkalemia Plan no acute need for renal replacement therapy . cr trending down, good UOP Hypertension control with meds as ordered. Maintain hemodynamics stable. Avoid hypotension. No ACEI/ARB due to recent TIERRA. hold norvasc/diuretics as well Monitor Input/Output, daily weights and renal function with basic metabolic panel started bicarb drip psych consult to assess his decisional capacity started weekly Vit D, iron and MVI supplements. PRBC as needed consider PEG if SPEP/HESHAM neg supplement lytes as needed heme/onc, psych, neuro following Check urine analysis, spot protein/creatinine, albumin/creatinine ratio Check for 25-OH vitamin D, iPTH, phosphorus level. SPEP/HESHAM/FLC assay Dose meds/antibiotics for reduced GFR. Avoid fleets enema/magnesium based laxatives. Avoid nephrotoxins/NSAIDs/ iodinated contrast (unless needed emergently) Glycemic control Further work up/management as per primary team Thanks for allowing me to participate in care of your patient. Will follow patient with you. Please call if any Qs. had d/w team Dr Mikie Cobb Office: [phone] Chief Complaint; fall at home Reason for consult: Acute Kidney Injury HPI: Pt is a 62 M with hx of seizure, hypertension (years) presented with complaints of fall at home and found to have severe TIERRA. pt was seen by ICU but he refused treatment as recommended. Denies OTC/herbal meds or NSAIDs No recent iodinated contrast exposure. Noted obvious episodes of low BP. pt denies CP/SOB/nausea/vomiting. feels better. reports decreased appetite for last few days and decreased urine output as well pt not aware about kidney disease in past. pt had TIERRA in apr 2017, cr was 1.9 at d/c ROS: Cardiovascular: No chest pain. Pulmonary: No shortness of breath Gastrointestinal: denies abdominal pain No nausea. No vomiting. Genitourinary: No pain while urinating. Denies blood in urine. noted increase in UOP All other negative except as mentioned in HPI Physical Examination: General Appearance: Comfortable, in no acute respiratory distress, co-operative . Vitals reviewed and noted as below Head; Atraumatic, normocephalic ENT: no ulcers no thrush. Tongue is midline. Oropharynx: no rash or ulcers. superficial abrasion over upper nose+ EYES: Pupils are equal, round and reactive to light accommodation. Eye muscles and extraocular movement intact. Sclera is anicteric. Neck; supple no lymphadenopathy, no thyromegaly or bruit Lungs: Normal respiratory rate/effort. Breath sounds bilateral equal and clear Heart: Normal rate. s1s2 normal. No rub or gallop. Extremities: no edema. No varicose veins Neurological: Patient is alert, awake and oriented to person, place and time. No focal deficit. Strength bilateral appropriate and equal. Skin: Warm and dry. Normal turgor. No rash. Palpitation: Normal elasticity for age Abdomen: Abdomen is soft. Bowel sounds +. There is no abdominal tenderness, no guarding/rigidity no organomegaly Psych: normal insight and flat affect/mood MSK: no joint tenderness or swelling. Digits and nails normal, no deformity : kidney or bladder not palpable Labs/imaging reviewed. Past medical history, past surgical history, family history, social history, allergy reviewed and noted as below Family hx: no hx of CKD. Rest non-contributory Vit D <12.8 PTH 529 TSAT 10% Ferritin 387 uric acid 15 Objective - Vital Signs/Intake and Output Vital Signs (last 24 hours): Temp Pulse Resp BP Pulse Ox 98.9 F 79 16 101/65 98 11/26/17 14:44 11/26/17 14:44 11/26/17 14:44 11/26/17 14:44 11/26/17 07:05 Intake and Output: 11/26/17 11/26/17 06:59 18:59 Intake Total 2400 0 Output Total 2050 Balance 350 0 - Medications Medications: Current Medications Acetaminophen (Tylenol 325mg Tab) 650 mg PO ONCE PRN PRN Reason: 30min prior to transfusion Last Admin: 11/26/17 13:12 Dose: 650 mg Bupropion HCl (Wellbutrin) 75 mg PO DAILY [facility] Last Admin: 11/26/17 10:47 Dose: 75 mg Diphenhydramine HCl (Benadryl) 25 mg IVP ONCE PRN PRN Reason: 30min prior to transfusion Last Admin: 11/26/17 13:18 Dose: 25 mg Ergocalciferol (Drisdol 50,000 Intl Units Cap) 1 cap PO Q7D [facility] Last Admin: 11/26/17 10:49 Dose: 1 cap Heparin Sodium (Porcine) (Heparin) 5,000 units SC Q12 [facility] Last Admin: 11/26/17 10:49 Dose: 5,000 units Hydroxyzine HCl (Atarax) 25 mg PO Q6 PRN PRN Reason: Anxiety Azithromycin 500 mg/ Sodium (Chloride) 250 mls @ 250 mls/hr IVPB Q24H [facility] PRN Reason: Protocol Last Admin: 11/25/17 21:26 Dose: 250 mls/hr Sodium Bicarbonate 100 meq/ (Dextrose) 1,100 mls @ 150 mls/hr IV .Q7H20M [facility] Last Admin: 11/26/17 08:45 Dose: Not Given Potassium Chloride (Potassium Chloride 10 Meq/100 Ml) 10 meq in 100 mls @ 100 mls/hr IVPB Q4H [facility] Stop: 11/26/17 22:29 Last Admin: 11/26/17 14:10 Dose: Not Given Levetiracetam (Keppra) 1,000 mg PO BID [facility] Last Admin: 11/26/17 10:49 Dose: 1,000 mg Metoprolol Succinate (Toprol Xl) 100 mg PO DAILY [facility] Last Admin: 11/26/17 10:49 Dose: 100 mg Potassium Chloride (Klor-Con 10) 10 meq PO BRK [facility] Last Admin: 11/26/17 10:48 Dose: 10 meq Trazodone HCl (Desyrel) 50 mg PO HS [facility] Last Admin: 11/25/17 22:27 Dose: 50 mg - Labs Labs: 11/26/17 05:33 11/26/17 05:33
[2017-11-26] MEDS: Ferric Sodium Gluconat Complex 62.5 mg/5 ml Vial IVPB SCH (15:21)
[2017-11-26 19:53] LABS: BASO % 0.3 % (0.0-2.0); EOS # 0.1 K/uL (0.0-0.7); EOS % 1.1 % (0.0-4.0); HEMOGLOBIN 8.5 g/dL (12.0-18.0); LYMPH # 1.6 K/uL (1.0-4.3); LYMPH % 21.1 % (20.0-40.0); MEAN CELL VOLUME 86.4 fL (80.0-94.0); MEAN CORPUSCULAR HEMOGLOBIN 29.5 pg (27.0-31.0); MEAN CORPUSCULAR HGB CONC 34.2 g/dL (33.0-37.0); MEAN PLATELET VOLUME 7.6 fL (7.2-11.7); MONO # 0.6 K/uL (0.0-0.8); MONO % 7.8 % (0.0-10.0); NEUT # 5.4 K/uL (1.8-7.0); NEUT % 69.7 % (50.0-75.0); NRBC % 0.1 % (0.0-2.0); RBC 2.87 Mil/uL (4.40-5.90); RED CELL DISTRIBUTION WIDTH 14.5 % (11.5-14.5); WHITE BLOOD COUNT 7.8 K/uL (4.8-10.8)
[2017-11-26] MEDS: Azithromycin 500 MG in Sodium Chloride 0.9% 250 ML IVPB SCH (21:55)
[2017-11-27] MEDS: Potassium Chloride 10 mEq ER Tab PO SCH (07:54)
[2017-11-27] MEDS: Multivitamin Vitamin B Complex (Nephro-Vite) Tab PO SCH (07:54)
[2017-11-27 08:31] VITALS: RESP 20
[2017-11-27] MEDS: Ferric Sodium Gluconat Complex 125 MG in Sodium Chloride 0.9% 100 ML IVPB SCH (09:42)
[2017-11-27] MEDS: Metoprolol Succinate 100 mg XL Tab PO SCH (09:48)
[2017-11-27] MEDS: Ferric Sodium Gluconat Complex 62.5 mg/5 ml Vial IVPB SCH (10:55)
[2017-11-27 12:45] LABS: BASO # 0.1 K/uL (0.0-0.2); BASO % 0.7 % (0.0-2.0); EOS # 0.1 K/uL (0.0-0.7); EOS % 1.4 % (0.0-4.0); LYMPH # 1.3 K/uL (1.0-4.3); LYMPH % 14.9 % (20.0-40.0); MEAN CELL VOLUME 87.6 fL (80.0-94.0); MEAN CORPUSCULAR HEMOGLOBIN 29.9 pg (27.0-31.0); MEAN CORPUSCULAR HGB CONC 34.1 g/dL (33.0-37.0); MEAN PLATELET VOLUME 8.2 fL (7.2-11.7); MONO # 0.8 K/uL (0.0-0.8); MONO % 9.7 % (0.0-10.0); NEUT # 6.4 K/uL (1.8-7.0); NEUT % 73.3 % (50.0-75.0); NRBC % 0.1 % (0.0-2.0); RBC 3.02 Mil/uL (4.40-5.90); WHITE BLOOD COUNT 8.7 K/uL (4.8-10.8)
[2017-11-27 13:28] LABS: ALBUMIN 3.4 g/dL (3.5-5.0); CALCIUM 8.6 mg/dl (8.6-10.4); URIC ACID 11.5 mg/dL (3.5-8.5)
[2017-11-27] MEDS: Sodium Bicarbonate 8.4% 100 MEQ in Dextrose 5% In Water 1,000 ML IV SCH (14:10)
[2017-11-27 14:31] LABS: FOLATE 12.7 ng/mL
--- NOTE | 2017-11-27 16:32 | CP.PCM.PN ---
Subjective - Date & Time of Evaluation Date of Evaluation: 11/27/17 Time of Evaluation: 16:32 - Subjective Subjective: Nephrology Consultation Note: Assessment: stable Acute Kidney Injury (N17.9) possibly due to ATN, rhabdomyolysis/dehydration: improving Hypertensive Chronic Kidney Disease (I12.9) Chronic Kidney Disease (N18.3) Stage 3 with ? mg proteinuria (R80.9) likely due to TIERRA/HTN Hyperphosphatemia (E83.39), HTN (I12.9) Fall at home, seizure hypernatremia, HAGMA Anemia .,hypkalemia Plan no acute need for renal replacement therapy . cr trending down, good UOP Hypertension control with meds as ordered. Maintain hemodynamics stable. Avoid hypotension. No ACEI/ARB due to recent TIERRA. hold norvasc/diuretics as well Monitor Input/Output, daily weights and renal function with basic metabolic panel started bicarb drip, will d/c and change to 0.45% saline psych consult to assess his decisional capacity started weekly Vit D, iron and MVI supplements. PRBC as needed consider PEG if SPEP/HESHAM neg supplement lytes as needed heme/onc, psych, neuro following Check urine analysis, spot protein/creatinine, albumin/creatinine ratio Check for 25-OH vitamin D, iPTH, phosphorus level. SPEP/HESHAM/FLC assay Dose meds/antibiotics for reduced GFR. Avoid fleets enema/magnesium based laxatives. Avoid nephrotoxins/NSAIDs/ iodinated contrast (unless needed emergently) Glycemic control Further work up/management as per primary team Thanks for allowing me to participate in care of your patient. Will follow patient with you. Please call if any Qs. had d/w team Dr Mikie Cobb Office: [phone] Chief Complaint; fall at home Reason for consult: Acute Kidney Injury HPI: Pt is a 62 M with hx of seizure, hypertension (years) presented with complaints of fall at home and found to have severe TIERRA. pt was seen by ICU but he refused treatment as recommended. Denies OTC/herbal meds or NSAIDs No recent iodinated contrast exposure. Noted obvious episodes of low BP. pt denies CP/SOB/nausea/vomiting. feels better. reports decreased appetite for last few days and decreased urine output as well pt not aware about kidney disease in past. pt had TIERRA in apr 2017, cr was 1.9 at d/c ROS: Cardiovascular: No chest pain. Pulmonary: No shortness of breath Gastrointestinal: denies abdominal pain No nausea. No vomiting. Genitourinary: No pain while urinating. Denies blood in urine. noted increase in UOP All other negative except as mentioned in HPI Physical Examination: General Appearance: Comfortable, in no acute respiratory distress, co-operative . Vitals reviewed and noted as below Head; Atraumatic, normocephalic ENT: no ulcers no thrush. Tongue is midline. Oropharynx: no rash or ulcers. superficial abrasion over upper nose+ EYES: Pupils are equal, round and reactive to light accommodation. Eye muscles and extraocular movement intact. Sclera is anicteric. Neck; supple no lymphadenopathy, no thyromegaly or bruit Lungs: Normal respiratory rate/effort. Breath sounds bilateral equal and clear Heart: Normal rate. s1s2 normal. No rub or gallop. Extremities: no edema. No varicose veins Neurological: Patient is alert, awake and oriented to person, place and time. No focal deficit. Strength bilateral appropriate and equal. Skin: Warm and dry. Normal turgor. No rash. Palpitation: Normal elasticity for age Abdomen: Abdomen is soft. Bowel sounds +. There is no abdominal tenderness, no guarding/rigidity no organomegaly Psych: normal insight and flat affect/mood MSK: no joint tenderness or swelling. Digits and nails normal, no deformity : kidney or bladder not palpable Labs/imaging reviewed. Past medical history, past surgical history, family history, social history, allergy reviewed and noted as below Family hx: no hx of CKD. Rest non-contributory Vit D <12.8 PTH 529 TSAT 10% Ferritin 387 uric acid 15 Objective - Vital Signs/Intake and Output Vital Signs (last 24 hours): Temp Pulse Resp BP Pulse Ox 98.2 F 90 20 104/68 96 11/27/17 15:00 11/27/17 15:00 11/27/17 15:00 11/27/17 15:00 11/27/17 15:00 Intake and Output: 11/27/17 11/27/17 06:59 18:59 Intake Total 1465 800 Output Total 1250 Balance 215 800 - Medications Medications: Current Medications Acetaminophen (Tylenol 325mg Tab) 650 mg PO ONCE PRN PRN Reason: 30min prior to transfusion Bupropion HCl (Wellbutrin) 75 mg PO DAILY [facility] Last Admin: 11/27/17 11:11 Dose: 75 mg Diphenhydramine HCl (Benadryl) 25 mg IVP ONCE PRN PRN Reason: 30min prior to transfusion Last Admin: 11/26/17 13:18 Dose: 25 mg Ergocalciferol (Drisdol 50,000 Intl Units Cap) 1 cap PO Q7D [facility] Last Admin: 11/26/17 10:49 Dose: 1 cap Heparin Sodium (Porcine) (Heparin) 5,000 units SC Q12 [facility] Last Admin: 11/27/17 09:43 Dose: 5,000 units Hydroxyzine HCl (Atarax) 25 mg PO Q6 PRN PRN Reason: Anxiety Azithromycin 500 mg/ Sodium (Chloride) 250 mls @ 250 mls/hr IVPB Q24H [facility] PRN Reason: Protocol Last Admin: 11/26/17 21:55 Dose: 250 mls/hr Sodium Bicarbonate 100 meq/ (Dextrose) 1,100 mls @ 100 mls/hr IV .Q11H [facility] Last Admin: 11/27/17 14:10 Dose: 100 mls/hr Ferric Sodium Gluconate Complex 125 mg/ Sodium Chloride 110 mls @ 110 mls/hr IVPB DAILY [facility] Stop: 12/03/17 10:01 Last Admin: 11/27/17 09:42 Dose: 110 mls/hr Levetiracetam (Keppra) 1,000 mg PO BID [facility] Last Admin: 11/27/17 09:43 Dose: 1,000 mg Metoprolol Succinate (Toprol Xl) 100 mg PO DAILY [facility] Last Admin: 11/27/17 09:48 Dose: Not Given Potassium Chloride (Klor-Con 10) 10 meq PO BRK [facility] Last Admin: 11/27/17 07:54 Dose: 10 meq Trazodone HCl (Desyrel) 50 mg PO HS [facility] Last Admin: 11/26/17 21:55 Dose: 50 mg Vitamin B Complex/Vit C/Folic Acid (Nephro-Margret) 1 tab PO 0800 [facility] Last Admin: 11/27/17 07:54 Dose: 1 tab - Labs Labs: 11/27/17 12:34 11/27/17 12:34
[2017-11-27] MEDS ORDERED: Potassium Chloride 20 mEq ER Tab PO SCH (16:45)
[2017-11-27] MEDS: Sodium Chloride 0.45% 1,000 ML IV SCH (17:23)
--- NOTE | 2017-11-27 19:52 | CP.PCM.PN ---
Subjective - Date & Time of Evaluation Date of Evaluation: 11/27/17 Time of Evaluation: 19:00 - Subjective Subjective: Feeling better Objective - Vital Signs/Intake and Output Vital Signs (last 24 hours): Temp Pulse Resp BP Pulse Ox 98.2 F 90 20 104/68 96 11/27/17 15:00 11/27/17 15:00 11/27/17 15:00 11/27/17 15:00 11/27/17 15:00 Intake and Output: 11/27/17 11/28/17 18:59 06:59 Intake Total 800 Output Total 1050 Balance 800 -1050 - Medications Medications: Current Medications Acetaminophen (Tylenol 325mg Tab) 650 mg PO ONCE PRN PRN Reason: 30min prior to transfusion Bupropion HCl (Wellbutrin) 75 mg PO DAILY [facility] Last Admin: 11/27/17 11:11 Dose: 75 mg Colchicine (Colocrys) 0.6 mg PO BID [facility] Last Admin: 11/27/17 19:19 Dose: 0.6 mg Diphenhydramine HCl (Benadryl) 25 mg IVP ONCE PRN PRN Reason: 30min prior to transfusion Last Admin: 11/26/17 13:18 Dose: 25 mg Ergocalciferol (Drisdol 50,000 Intl Units Cap) 1 cap PO Q7D [facility] Last Admin: 11/26/17 10:49 Dose: 1 cap Heparin Sodium (Porcine) (Heparin) 5,000 units SC Q12 [facility] Last Admin: 11/27/17 09:43 Dose: 5,000 units Hydroxyzine HCl (Atarax) 25 mg PO Q6 PRN PRN Reason: Anxiety Azithromycin 500 mg/ Sodium (Chloride) 250 mls @ 250 mls/hr IVPB Q24H [facility] PRN Reason: Protocol Last Admin: 11/26/17 21:55 Dose: 250 mls/hr Ferric Sodium Gluconate Complex 125 mg/ Sodium Chloride 110 mls @ 110 mls/hr IVPB DAILY [facility] Stop: 12/03/17 10:01 Last Admin: 11/27/17 09:42 Dose: 110 mls/hr Sodium Chloride (Sodium Chloride 0.45%) 1,000 mls @ 100 mls/hr IV .Q10H [facility] Last Admin: 11/27/17 17:23 Dose: 100 mls/hr Levetiracetam (Keppra) 1,000 mg PO BID [facility] Last Admin: 11/27/17 17:22 Dose: 1,000 mg Metoprolol Succinate (Toprol Xl) 100 mg PO DAILY [facility] Last Admin: 11/27/17 09:48 Dose: Not Given Potassium Chloride (Klor-Con 10) 10 meq PO BRK [facility] Last Admin: 11/27/17 07:54 Dose: 10 meq Trazodone HCl (Desyrel) 50 mg PO HS [facility] Last Admin: 11/26/17 21:55 Dose: 50 mg Vitamin B Complex/Vit C/Folic Acid (Nephro-Margret) 1 tab PO 0800 [facility] Last Admin: 11/27/17 07:54 Dose: 1 tab - Labs Labs: 11/27/17 12:34 11/27/17 12:34 - Head Exam Head Exam: ATRAUMATIC - Eye Exam Eye Exam: Normal appearance - ENT Exam ENT Exam: Mucous Membranes Dry - Respiratory Exam Respiratory Exam: NORMAL BREATHING PATTERN - Cardiovascular Exam Cardiovascular Exam: +S1, +S2 - GI/Abdominal Exam GI & Abdominal Exam: Normal Bowel Sounds Assessment and Plan (1) Anemia Assessment & Plan: hypoproliferative erythroid response f/u monoclonal protein w/u ? anemia of CKD no iron/b12/folate deficiency H/H improved Status: Acute
[2017-11-27] MEDS: Azithromycin 500 MG in Sodium Chloride 0.9% 250 ML IVPB SCH (21:45)
[2017-11-28] MEDS: Sodium Chloride 0.45% 1,000 ML IV SCH ×3 (02:45→14:20)
[2017-11-28 10:10] LABS: ALBUMIN 3.4 g/dL (3.5-5.0); CALCIUM 8.6 mg/dl (8.6-10.4)
[2017-11-28] MEDS ORDERED: Potassium Chloride 20 mEq ER Tab PO SCH (10:15)
[2017-11-28] MEDS: Metoprolol Succinate 100 mg XL Tab PO SCH (11:51)
[2017-11-28] MEDS: Potassium Chloride 10 mEq ER Tab PO SCH (11:51)
[2017-11-28] MEDS: Multivitamin Vitamin B Complex (Nephro-Vite) Tab PO SCH (11:52)
[2017-11-28] MEDS: Ferric Sodium Gluconat Complex 125 MG in Sodium Chloride 0.9% 100 ML IVPB SCH (11:58)
--- NOTE | 2017-11-28 12:11 | CP.PCM.PN ---
Subjective - Date & Time of Evaluation Date of Evaluation: 11/28/17 Time of Evaluation: 12:09 - Subjective Subjective: Nephrology Consultation Note: Assessment: stable Acute Kidney Injury (N17.9) possibly due to ATN, rhabdomyolysis/dehydration: improving Hypertensive Chronic Kidney Disease (I12.9) Chronic Kidney Disease (N18.3) Stage 3 with ? mg proteinuria (R80.9) likely due to TIERRA/HTN Hyperphosphatemia (E83.39), HTN (I12.9) Fall at home, seizure hypernatremia, HAGMA Anemia .,hypkalemia Plan no acute need for renal replacement therapy . cr trending down, good UOP Hypertension control with meds as ordered. Maintain hemodynamics stable. Avoid hypotension. No ACEI/ARB due to recent TIERRA. hold norvasc/diuretics as well Monitor Input/Output, daily weights and renal function with basic metabolic panel continue with 0.45% saline psych consult to assess his decisional capacity started weekly Vit D, iron and MVI supplements. PRBC as needed consider PEG if SPEP/HESHAM neg supplement lytes as needed heme/onc, psych, neuro following added allopurinol Check urine analysis, spot protein/creatinine, albumin/creatinine ratio Check for 25-OH vitamin D, iPTH, phosphorus level. SPEP/HESHAM/FLC assay Dose meds/antibiotics for reduced GFR. Avoid fleets enema/magnesium based laxatives. Avoid nephrotoxins/NSAIDs/ iodinated contrast (unless needed emergently) Glycemic control Further work up/management as per primary team can initiate d/c planning, stable from renal perspective for outpt f/up 1 week Thanks for allowing me to participate in care of your patient. Will follow patient with you. Please call if any Qs. had d/w team Dr Mikie Cobb Office: [phone] Chief Complaint; fall at home Reason for consult: Acute Kidney Injury HPI: Pt is a 62 M with hx of seizure, hypertension (years) presented with complaints of fall at home and found to have severe TIERRA. pt was seen by ICU but he refused treatment as recommended. Denies OTC/herbal meds or NSAIDs No recent iodinated contrast exposure. Noted obvious episodes of low BP. pt denies CP/SOB/nausea/vomiting. feels better. reports decreased appetite for last few days and decreased urine output as well pt not aware about kidney disease in past. pt had TIERRA in apr 2017, cr was 1.9 at d/c ROS: pt reports hand joint pain and being treated with colchicine Cardiovascular: No chest pain. Pulmonary: No shortness of breath Gastrointestinal: denies abdominal pain No nausea. No vomiting. Genitourinary: No pain while urinating. Denies blood in urine. noted increase in UOP All other negative except as mentioned in HPI Physical Examination: General Appearance: Comfortable, in no acute respiratory distress, co-operative . Vitals reviewed and noted as below Head; Atraumatic, normocephalic ENT: no ulcers no thrush. Tongue is midline. Oropharynx: no rash or ulcers. superficial abrasion over upper nose+ EYES: Pupils are equal, round and reactive to light accommodation. Eye muscles and extraocular movement intact. Sclera is anicteric. Neck; supple no lymphadenopathy, no thyromegaly or bruit Lungs: Normal respiratory rate/effort. Breath sounds bilateral equal and clear Heart: Normal rate. s1s2 normal. No rub or gallop. Extremities: no edema. No varicose veins Neurological: Patient is alert, awake and oriented to person, place and time. No focal deficit. Strength bilateral appropriate and equal. Skin: Warm and dry. Normal turgor. No rash. Palpitation: Normal elasticity for age Abdomen: Abdomen is soft. Bowel sounds +. There is no abdominal tenderness, no guarding/rigidity no organomegaly Psych: normal insight and flat affect/mood MSK: no joint tenderness or swelling. Digits and nails normal, no deformity : kidney or bladder not palpable Labs/imaging reviewed. Past medical history, past surgical history, family history, social history, allergy reviewed and noted as below Family hx: no hx of CKD. Rest non-contributory Vit D <12.8 PTH 529 TSAT 10% Ferritin 387 uric acid 15 Objective - Vital Signs/Intake and Output Vital Signs (last 24 hours): Temp Pulse Resp BP Pulse Ox 98.5 F 85 20 105/65 97 11/27/17 23:20 11/28/17 08:00 11/27/17 23:20 11/27/17 23:20 11/27/17 23:20 Intake and Output: 11/28/17 11/28/17 06:59 18:59 Intake Total 1200 Output Total 2300 Balance -1100 - Medications Medications: Current Medications Acetaminophen (Tylenol 325mg Tab) 650 mg PO ONCE PRN PRN Reason: 30min prior to transfusion Bupropion HCl (Wellbutrin) 75 mg PO DAILY [facility] Last Admin: 11/27/17 11:11 Dose: 75 mg Colchicine (Colocrys) 0.6 mg PO BID [facility] Last Admin: 11/27/17 19:19 Dose: 0.6 mg Diphenhydramine HCl (Benadryl) 25 mg IVP ONCE PRN PRN Reason: 30min prior to transfusion Last Admin: 11/26/17 13:18 Dose: 25 mg Ergocalciferol (Drisdol 50,000 Intl Units Cap) 1 cap PO Q7D [facility] Last Admin: 11/26/17 10:49 Dose: 1 cap Hydroxyzine HCl (Atarax) 25 mg PO Q6 PRN PRN Reason: Anxiety Ferric Sodium Gluconate Complex 125 mg/ Sodium Chloride 110 mls @ 110 mls/hr IVPB DAILY [facility] Stop: 12/03/17 10:01 Last Admin: 11/28/17 11:58 Dose: 110 mls/hr Sodium Chloride (Sodium Chloride 0.45%) 1,000 mls @ 100 mls/hr IV .Q10H [facility] Last Admin: 11/28/17 04:46 Dose: 100 mls/hr Levetiracetam (Keppra) 1,000 mg PO BID [facility] Last Admin: 11/28/17 11:52 Dose: 1,000 mg Metoprolol Succinate (Toprol Xl) 100 mg PO DAILY [facility] Last Admin: 11/28/17 11:51 Dose: 100 mg Potassium Chloride (Klor-Con 10) 10 meq PO BRK [facility] Last Admin: 11/28/17 11:51 Dose: 10 meq Trazodone HCl (Desyrel) 50 mg PO HS [facility] Last Admin: 11/27/17 21:44 Dose: 50 mg Vitamin B Complex/Vit C/Folic Acid (Nephro-Margret) 1 tab PO 0800 [facility] Last Admin: 11/28/17 11:52 Dose: 1 tab - Labs Labs: 11/27/17 12:34 11/28/17 07:44
[2017-11-29] MEDS: Sodium Chloride 0.45% 1,000 ML IV SCH ×4 (00:52→15:49)
--- NOTE | 2017-11-29 09:25 | PN ---
Copied To: Amie Garcia MD Attending MD: Amie Garcia MD DATE: 11/28/2017 The patient get Monitor H and H. Monitor seizures. Supportive care. Amie Garcia MD
[2017-11-29] MEDS: Multivitamin Vitamin B Complex (Nephro-Vite) Tab PO SCH (10:41)
[2017-11-29] MEDS: Potassium Chloride 10 mEq ER Tab PO SCH (10:42)
[2017-11-29] MEDS: Metoprolol Succinate 100 mg XL Tab PO SCH (10:42)
[2017-11-29] MEDS: Ferric Sodium Gluconat Complex 125 MG in Sodium Chloride 0.9% 100 ML IVPB SCH (11:50)
[2017-11-29 11:54] LABS: BASO # 0.1 K/uL (0.0-0.2); BASO % 0.7 % (0.0-2.0); EOS # 0.2 K/uL (0.0-0.7); EOS % 2.8 % (0.0-4.0); HEMOGLOBIN 8.3 g/dL (12.0-18.0); LYMPH # 1.6 K/uL (1.0-4.3); LYMPH % 20.3 % (20.0-40.0); MEAN CELL VOLUME 89.3 fL (80.0-94.0); MEAN CORPUSCULAR HEMOGLOBIN 30.3 pg (27.0-31.0); MEAN CORPUSCULAR HGB CONC 33.9 g/dL (33.0-37.0); MEAN PLATELET VOLUME 7.9 fL (7.2-11.7); MONO # 0.8 K/uL (0.0-0.8); MONO % 9.6 % (0.0-10.0); NEUT # 5.2 K/uL (1.8-7.0); NEUT % 66.6 % (50.0-75.0); RBC 2.76 Mil/uL (4.40-5.90); RED CELL DISTRIBUTION WIDTH 14.1 % (11.5-14.5); WHITE BLOOD COUNT 7.9 K/uL (4.8-10.8)
[2017-11-29] MEDS ORDERED: Epoetin Alfa 4000 UNIT/ML Inj SC SCH (12:00)
[2017-11-29 12:07] LABS: ALBUMIN 3.3 g/dL (3.5-5.0); CALCIUM 8.7 mg/dl (8.6-10.4)
--- NOTE | 2017-11-29 14:50 | CP.PCM.PN ---
Subjective - Date & Time of Evaluation Date of Evaluation: 11/29/17 Time of Evaluation: 14:47 - Subjective Subjective: PGYIII progress note for Dr. Garcia Pt seen and examined at bedside. No acute events overnight. Pt is sitting comfortably in chair. Denies having any CP, SOB, abd pain, N/v/D/c, F/c. Patient is tolerating diet. Objective - Vital Signs/Intake and Output Vital Signs (last 24 hours): Temp Pulse Resp BP Pulse Ox 98.7 F 85 20 112/73 96 11/29/17 07:40 11/29/17 08:00 11/29/17 07:40 11/29/17 07:40 11/29/17 07:40 - Medications Medications: Current Medications Acetaminophen (Tylenol 325mg Tab) 650 mg PO ONCE PRN PRN Reason: 30min prior to transfusion Allopurinol (Zyloprim) 100 mg PO DAILY [facility] Last Admin: 11/29/17 11:14 Dose: 100 mg Bupropion HCl (Wellbutrin) 75 mg PO DAILY [facility] Last Admin: 11/29/17 11:14 Dose: 75 mg Colchicine (Colocrys) 0.6 mg PO BID [facility] Last Admin: 11/29/17 10:42 Dose: 0.6 mg Diphenhydramine HCl (Benadryl) 25 mg IVP ONCE PRN PRN Reason: 30min prior to transfusion Last Admin: 11/26/17 13:18 Dose: 25 mg Epoetin Nick (Procrit) 8,000 unit SC MWF [facility] Last Admin: 11/29/17 12:22 Dose: 8,000 unit Ergocalciferol (Drisdol 50,000 Intl Units Cap) 1 cap PO Q7D [facility] Last Admin: 11/26/17 10:49 Dose: 1 cap Hydroxyzine HCl (Atarax) 25 mg PO Q6 PRN PRN Reason: Anxiety Last Admin: 11/29/17 10:43 Dose: 25 mg Ferric Sodium Gluconate Complex 125 mg/ Sodium Chloride 110 mls @ 110 mls/hr IVPB DAILY [facility] Stop: 12/03/17 10:01 Last Admin: 11/29/17 11:50 Dose: 110 mls/hr Sodium Chloride (Sodium Chloride 0.45%) 1,000 mls @ 100 mls/hr IV .Q10H [facility] Last Admin: 11/29/17 09:45 Dose: 100 mls/hr Levetiracetam (Keppra) 1,000 mg PO BID [facility] Last Admin: 11/29/17 10:41 Dose: 1,000 mg Metoprolol Succinate (Toprol Xl) 100 mg PO DAILY [facility] Last Admin: 11/29/17 10:42 Dose: 100 mg Potassium Chloride (Klor-Con 10) 10 meq PO BRK [facility] Last Admin: 11/29/17 10:42 Dose: 10 meq Trazodone HCl (Desyrel) 50 mg PO HS [facility] Last Admin: 11/28/17 21:15 Dose: 50 mg Vitamin B Complex/Vit C/Folic Acid (Nephro-Margret) 1 tab PO 0800 [facility] Last Admin: 11/29/17 10:41 Dose: 1 tab - Labs Labs: 11/29/17 11:41 11/29/17 11:41 - Constitutional Appears: Non-toxic, No Acute Distress - Head Exam Head Exam: ATRAUMATIC, NORMOCEPHALIC - ENT Exam ENT Exam: Mucous Membranes Moist - Respiratory Exam Respiratory Exam: Clear to Ausculation Bilateral. absent: Accessory Muscle Use , Rales, Rhonchi, Wheezes, Respiratory Distress - Cardiovascular Exam Cardiovascular Exam: REGULAR RHYTHM, +S1, +S2. absent: Gallop, Rubs, Murmur - GI/Abdominal Exam GI & Abdominal Exam: Soft, Normal Bowel Sounds. absent: Distended, Firm, Guarding, Rigid, Tenderness, Organomegaly - Extremities Exam Extremities Exam: absent: Pedal Edema, Tenderness - Neurological Exam Neurological Exam: Alert, Awake, Oriented x3 - Psychiatric Exam Psychiatric exam: Normal Affect, Normal Mood - Skin Skin Exam: Dry, Intact, Normal Color, Warm Assessment and Plan - Assessment and Plan (Free Text) Assessment: TIERRA Likely 2/2 severe dehydration vs. rhabdomyolysis Kidney function is improving Nephro consulted, Dr. Reyes Renal u/s- B/L increase echogenicity f/u protein electrophoresis ESR 107; CRP 60.4 Continue .45% nS at 100 cc Monitor I/O's AVOID- nsaid, tammy, arb, diuretics Seizure disorder Consult placed to neuro- Dr. Acosta- Chana appreciated Pt denies seizure/head trauma CT head- negative Keppra 1000 mg BID HTN Controlled Metoprolol 100mg PO QD Anemia S/P transfusion 1 unit Hemeonc consult, Dr. Wilson, f/u recs f/u fecal occult and SPEC studies Iron studies are low Continue iron supplementation with iron infusion. Continue Procrit MWF Anxiety/Depression Buproprion 75mg PO QD Atarax 25mg PO q6hrs Insomnia Trazodone 50mg PO QHS Electrolyte Imbalance Hypokalemia hypomagnesemia hypophosphatemia repleted. Will continue to monitor and replace as needed Vitamin D Deficiency Vit D 25-OH level <12.8; Start Ergocalciferol 50,000 1 tab q7D Gout Continue colchicine and allopurinol Prophylaxis Pepcid SCDs Heparin 5k U q12hrs PT/OT--> recommend [facility] placement Psych consult placed to assess decision making capacity- Dr. Bernstein, Recs appreciated Patient would like his sister informed of medical management when necessary. Bhavya Gunn Case discussed with attending. All medical management as per Dr. Verenice Garcia.
[2017-11-29] MEDS ORDERED: Magnesium Sulfate 1 gm in D5W 1 GM/100 ML BAG IVPB ONE (14:52)
--- NOTE | 2017-11-29 15:13 | CP.PCM.PN ---
Subjective - Date & Time of Evaluation Date of Evaluation: 11/29/17 Time of Evaluation: 15:12 - Subjective Subjective: Nephrology Consultation Note: Assessment: stable Acute Kidney Injury (N17.9) possibly due to ATN, rhabdomyolysis/dehydration: improving Hypertensive Chronic Kidney Disease (I12.9) Chronic Kidney Disease (N18.3) Stage 3 with ? mg proteinuria (R80.9) likely due to TIERRA/HTN Hyperphosphatemia (E83.39), HTN (I12.9) Fall at home, seizure hypernatremia, HAGMA Anemia .,hypkalemia Plan no acute need for renal replacement therapy . cr trending down, good UOP Hypertension control with meds as ordered. Maintain hemodynamics stable. Avoid hypotension. No ACEI/ARB due to recent TIERRA. hold norvasc/diuretics as well Monitor Input/Output, daily weights and renal function with basic metabolic panel continue with 0.45% saline, lowered to 75 ml/hr started weekly Vit D, iron and MVI supplements and epogen. PRBC as needed supplement lytes as needed heme/onc, psych, neuro following added allopurinol Check urine analysis, spot protein/creatinine, albumin/creatinine ratio Check for 25-OH vitamin D, iPTH, phosphorus level. SPEP/HESHAM/FLC assay Dose meds/antibiotics for reduced GFR. Avoid fleets enema/magnesium based laxatives. Avoid nephrotoxins/NSAIDs/ iodinated contrast (unless needed emergently) Glycemic control Further work up/management as per primary team can initiate d/c planning, stable from renal perspective for outpt f/up 1 week Thanks for allowing me to participate in care of your patient. Will follow patient with you. Please call if any Qs. had d/w team Dr Mikie Cobb Office: [phone] Chief Complaint; fall at home Reason for consult: Acute Kidney Injury HPI: Pt is a 62 M with hx of seizure, hypertension (years) presented with complaints of fall at home and found to have severe TIERRA. pt was seen by ICU but he refused treatment as recommended. Denies OTC/herbal meds or NSAIDs No recent iodinated contrast exposure. Noted obvious episodes of low BP. pt denies CP/SOB/nausea/vomiting. feels better. reports decreased appetite for last few days and decreased urine output as well pt not aware about kidney disease in past. pt had TIERRA in apr 2017, cr was 1.9 at d/c ROS: pt reports hand joint pain better and being treated with colchicine Cardiovascular: No chest pain. Pulmonary: No shortness of breath Gastrointestinal: denies abdominal pain No nausea. No vomiting. Genitourinary: No pain while urinating. Denies blood in urine. noted increase in UOP All other negative except as mentioned in HPI Physical Examination: General Appearance: Comfortable, in no acute respiratory distress, co-operative . Vitals reviewed and noted as below Head; Atraumatic, normocephalic ENT: no ulcers no thrush. Tongue is midline. Oropharynx: no rash or ulcers. superficial abrasion over upper nose+ EYES: Pupils are equal, round and reactive to light accommodation. Eye muscles and extraocular movement intact. Sclera is anicteric. Neck; supple no lymphadenopathy, no thyromegaly or bruit Lungs: Normal respiratory rate/effort. Breath sounds bilateral equal and clear Heart: Normal rate. s1s2 normal. No rub or gallop. Extremities: no edema. No varicose veins Neurological: Patient is alert, awake and oriented to person, place and time. No focal deficit. Strength bilateral appropriate and equal. Skin: Warm and dry. Normal turgor. No rash. Palpitation: Normal elasticity for age Abdomen: Abdomen is soft. Bowel sounds +. There is no abdominal tenderness, no guarding/rigidity no organomegaly Psych: normal insight and flat affect/mood MSK: no joint tenderness or swelling. Digits and nails normal, no deformity : kidney or bladder not palpable Labs/imaging reviewed. Past medical history, past surgical history, family history, social history, allergy reviewed and noted as below Family hx: no hx of CKD. Rest non-contributory Vit D <12.8 PTH 529 TSAT 10% Ferritin 387 uric acid 15 Objective - Vital Signs/Intake and Output Vital Signs (last 24 hours): Temp Pulse Resp BP Pulse Ox 98.7 F 85 20 112/73 96 11/29/17 07:40 11/29/17 08:00 11/29/17 07:40 11/29/17 07:40 11/29/17 07:40 - Medications Medications: Current Medications Acetaminophen (Tylenol 325mg Tab) 650 mg PO ONCE PRN PRN Reason: 30min prior to transfusion Allopurinol (Zyloprim) 100 mg PO DAILY [facility] Last Admin: 11/29/17 11:14 Dose: 100 mg Bupropion HCl (Wellbutrin) 75 mg PO DAILY [facility] Last Admin: 11/29/17 11:14 Dose: 75 mg Colchicine (Colocrys) 0.6 mg PO BID [facility] Last Admin: 11/29/17 10:42 Dose: 0.6 mg Diphenhydramine HCl (Benadryl) 25 mg IVP ONCE PRN PRN Reason: 30min prior to transfusion Last Admin: 11/26/17 13:18 Dose: 25 mg Epoetin Nick (Procrit) 8,000 unit SC MWF [facility] Last Admin: 11/29/17 12:22 Dose: 8,000 unit Ergocalciferol (Drisdol 50,000 Intl Units Cap) 1 cap PO Q7D [facility] Last Admin: 11/26/17 10:49 Dose: 1 cap Hydroxyzine HCl (Atarax) 25 mg PO Q6 PRN PRN Reason: Anxiety Last Admin: 11/29/17 10:43 Dose: 25 mg Ferric Sodium Gluconate Complex 125 mg/ Sodium Chloride 110 mls @ 110 mls/hr IVPB DAILY [facility] Stop: 12/03/17 10:01 Last Admin: 11/29/17 11:50 Dose: 110 mls/hr Potassium Phosphate 15 mmole/ (Dextrose) 255 mls @ 42.5 mls/hr IVPB ONCE ONE Stop: 11/29/17 21:59 Magnesium Sulfate/Dextrose (Magnesium Sulfate 1 Gm/100 Ml D5w) 1 gm in 100 mls @ 200 mls/hr IVPB ONCE ONE Stop: 11/29/17 15:21 Last Admin: 11/29/17 14:58 Dose: 200 mls/hr Levetiracetam (Keppra) 1,000 mg PO BID [facility] Last Admin: 11/29/17 10:41 Dose: 1,000 mg Metoprolol Succinate (Toprol Xl) 100 mg PO DAILY [facility] Last Admin: 11/29/17 10:42 Dose: 100 mg Potassium Chloride (Klor-Con 10) 10 meq PO BRK [facility] Last Admin: 11/29/17 10:42 Dose: 10 meq Trazodone HCl (Desyrel) 50 mg PO HS [facility] Last Admin: 08/26/18 21:15 Dose: 50 mg Vitamin B Complex/Vit C/Folic Acid (Nephro-Margret) 1 tab PO 0800 [facility] Last Admin: 11/29/17 10:41 Dose: 1 tab - Labs Labs: 11/29/17 11:41 11/29/17 11:41
[2017-11-29] MEDS ORDERED: Potassium Phosphate 15 MMOLE in Dextrose 5% In Water 250 ML IVPB ONE (16:00)
[2017-11-30] MEDS: Sodium Chloride 0.45% 1,000 ML IV SCH (04:30)
[2017-11-30 07:03] LABS: ALB/GLOB RATIO 1.1 (1.0-2.1); ALBUMIN 3.5 g/dL (3.5-5.0); CALCIUM 8.9 mg/dl (8.6-10.4)
[2017-11-30 07:14] LABS: BASO % 0.7 % (0.0-2.0); EOS # 0.2 K/uL (0.0-0.7); EOS % 2.8 % (0.0-4.0); HEMOGLOBIN 8.3 g/dL (12.0-18.0); LYMPH # 1.4 K/uL (1.0-4.3); LYMPH % 20.4 % (20.0-40.0); MEAN CORPUSCULAR HEMOGLOBIN 29.7 pg (27.0-31.0); MEAN CORPUSCULAR HGB CONC 33.7 g/dL (33.0-37.0); MEAN PLATELET VOLUME 7.6 fL (7.2-11.7); MONO # 0.5 K/uL (0.0-0.8); MONO % 6.7 % (0.0-10.0); NEUT # 4.8 K/uL (1.8-7.0); NEUT % 69.4 % (50.0-75.0); NRBC % 0.1 % (0.0-2.0); RBC 2.81 Mil/uL (4.40-5.90); RED CELL DISTRIBUTION WIDTH 14.2 % (11.5-14.5); WHITE BLOOD COUNT 6.9 K/uL (4.8-10.8)
[2017-11-30] MEDS: Multivitamin Vitamin B Complex (Nephro-Vite) Tab PO SCH (08:29)
[2017-11-30] MEDS: Potassium Chloride 10 mEq ER Tab PO SCH (08:29)
--- NOTE | 2017-11-30 10:06 | CP.PCM.PN ---
Subjective - Date & Time of Evaluation Date of Evaluation: 11/30/17 Time of Evaluation: 10:05 - Subjective Subjective: Medicine progress note for Dr. Garcia Patient seen and examined. Patient states he is feeling well. Patient comfortable in chair at bedside. He is tolerating diet well and denies having any CP, SOB, abd pain, N/v/D/c, F/c. Objective - Vital Signs/Intake and Output Vital Signs (last 24 hours): Temp Pulse Resp BP Pulse Ox 98.2 F 74 20 114/72 96 11/30/17 08:02 11/30/17 08:02 11/30/17 08:02 11/30/17 08:02 11/30/17 08:02 Intake and Output: 11/30/17 11/30/17 06:59 18:59 Intake Total 635 Output Total 1100 Balance -465 - Medications Medications: Current Medications Acetaminophen (Tylenol 325mg Tab) 650 mg PO ONCE PRN PRN Reason: 30min prior to transfusion Allopurinol (Zyloprim) 100 mg PO DAILY [facility] Last Admin: 11/29/17 11:14 Dose: 100 mg Bupropion HCl (Wellbutrin) 75 mg PO DAILY [facility] Last Admin: 11/29/17 11:14 Dose: 75 mg Colchicine (Colocrys) 0.6 mg PO BID [facility] Last Admin: 11/29/17 17:28 Dose: 0.6 mg Diphenhydramine HCl (Benadryl) 25 mg IVP ONCE PRN PRN Reason: 30min prior to transfusion Last Admin: 11/26/17 13:18 Dose: 25 mg Epoetin Nick (Procrit) 8,000 unit SC MWF [facility] Last Admin: 11/29/17 12:22 Dose: 8,000 unit Ergocalciferol (Drisdol 50,000 Intl Units Cap) 1 cap PO Q7D [facility] Last Admin: 11/26/17 10:49 Dose: 1 cap Hydroxyzine HCl (Atarax) 25 mg PO Q6 PRN PRN Reason: Anxiety Last Admin: 11/29/17 10:43 Dose: 25 mg Ferric Sodium Gluconate Complex 125 mg/ Sodium Chloride 110 mls @ 110 mls/hr IVPB DAILY [facility] Stop: 12/03/17 10:01 Last Admin: 11/29/17 11:50 Dose: 110 mls/hr Sodium Chloride (Sodium Chloride 0.45%) 1,000 mls @ 75 mls/hr IV .[id number] [facility] Last Admin: 11/30/17 04:30 Dose: 75 mls/hr Levetiracetam (Keppra) 1,000 mg PO BID [facility] Last Admin: 11/29/17 17:28 Dose: 1,000 mg Metoprolol Succinate (Toprol Xl) 100 mg PO DAILY [facility] Last Admin: 11/29/17 10:42 Dose: 100 mg Potassium Chloride (Klor-Con 10) 10 meq PO BRK [facility] Last Admin: 11/30/17 08:29 Dose: 10 meq Trazodone HCl (Desyrel) 50 mg PO HS [facility] Last Admin: 11/29/17 21:32 Dose: 50 mg Vitamin B Complex/Vit C/Folic Acid (Nephro-Margret) 1 tab PO 0800 [facility] Last Admin: 11/30/17 08:29 Dose: 1 tab - Labs Labs: 11/30/17 06:26 11/30/17 06:26 - Constitutional Appears: No Acute Distress - Head Exam Head Exam: NORMOCEPHALIC Additional comments: abrasion on bridge of nose - Eye Exam Eye Exam: EOMI - ENT Exam ENT Exam: Mucous Membranes Moist - Respiratory Exam Respiratory Exam: Clear to Ausculation Bilateral - Cardiovascular Exam Cardiovascular Exam: +S1, +S2 - GI/Abdominal Exam GI & Abdominal Exam: Soft, Normal Bowel Sounds. absent: Tenderness - Extremities Exam Extremities Exam: Normal Inspection. absent: Pedal Edema - Neurological Exam Neurological Exam: Alert, Awake - Skin Skin Exam: Warm Assessment and Plan - Assessment and Plan (Free Text) Assessment: TIERRA Likely 2/2 severe dehydration vs. rhabdomyolysis Kidney function is improving Nephro consulted, Dr. Cobb Renal u/s- B/L increase echogenicity ESR 107; CRP 60.4 protein electrophoresis shows faint IgG kappa monoclonal protein band Monitor I/O's AVOID- nsaid, tammy, arb, diuretics Seizure disorder Consult placed to neuro- Dr. Acosta- Recs appreciated Pt denies seizure/head trauma CT head- negative Keppra 1000 mg BID HTN Controlled Metoprolol 100mg PO QD Anemia S/P transfusion 1 unit Hemeonc consult, Dr. Wilson, f/u recs fecal occult negative, SPEC studies pending Iron studies are low Continue iron supplementation with iron infusion. Continue Procrit MWF protein electrophoresis shows faint IgG kappa monoclonal protein band- patient to have further workup with Dr. Wilson as outpatient Anxiety/Depression Buproprion 75mg PO QD Atarax 25mg PO q6hrs Insomnia Trazodone 50mg PO QHS Electrolyte Imbalance Hypokalemia hypomagnesemia hypophosphatemia repleted. Will continue to monitor and replace as needed Vitamin D Deficiency Vit D 25-OH level <12.8; Start Ergocalciferol 50,000 1 tab q7D Gout Continue colchicine and allopurinol Prophylaxis Pepcid SCDs Heparin 5k U q12hrs PT/OT--> recommend [facility] placement Psych consult placed to assess decision making capacity- Dr. Bernstein, Recs appreciated Patient would like his sister informed of medical management when necessary. Bhavya Gunn Case discussed with attending. All medical management as per Dr. Verenice Garcia. Patient is stable for discharge to rehab when bed is available per Dr. Garcia. Patient is to follow up with PMD within 7 days of discharge. Patient is to follow up with equipment [employer] Dr. Cobb on discharge as well as rn charge Dr. Wilson for further work up relating to anemia. Patient is to return to the ER if symptoms worsen or reoccur. This was explained to the patient who understands and agrees.
[2017-11-30] MEDS: Ferric Sodium Gluconat Complex 125 MG in Sodium Chloride 0.9% 100 ML IVPB SCH (10:12)
[2017-11-30] MEDS: Metoprolol Succinate 100 mg XL Tab PO SCH (10:12)
[2017-11-30] MEDS ORDERED: Potassium Chloride 20 mEq ER Tab PO SCH (10:30)
[2017-11-30] MEDS: Magnesium Sulfate 1 gm in D5W 1 GM/100 ML BAG IVPB SCH ×2 (11:20→11:21)
[2017-11-30 12:19] LABS: ALBUMIN (PEP) 2.9 g/dL (3.8-4.8); ALPHA-1-GLOBULIN (PEP) 0.5 g/dL (0.2-0.3)
--- NOTE | 2017-11-30 12:29 | CP.PCM.PN ---
Subjective - Date & Time of Evaluation Date of Evaluation: 11/30/17 Time of Evaluation: 12:27 - Subjective Subjective: Nephrology Consultation Note: Assessment: stable Acute Kidney Injury (N17.9) possibly due to ATN, rhabdomyolysis/dehydration: improving Hypertensive Chronic Kidney Disease (I12.9) Chronic Kidney Disease (N18.3) Stage 3 with ? mg proteinuria (R80.9) likely due to TIERRA/HTN Hyperphosphatemia (E83.39), HTN (I12.9) Fall at home, seizure hypernatremia, HAGMA Anemia .,hypkalemia hypomagnesemia hypophosphatemia Plan no acute need for renal replacement therapy . cr trending down, good UOP Hypertension control with meds as ordered. Maintain hemodynamics stable. Avoid hypotension. No ACEI/ARB due to recent TIERRA. hold norvasc/diuretics as well Monitor Input/Output, daily weights and renal function with basic metabolic panel d/c IVF started weekly Vit D, iron and MVI supplements and epogen. PRBC as needed supplement lytes as needed/ordered heme/onc, psych, neuro following. Faint IgG kappa + but normal kappa/lambda ratio added allopurinol Check urine analysis, spot protein/creatinine, albumin/creatinine ratio Check for 25-OH vitamin D, iPTH, phosphorus level. SPEP/HESHAM/FLC assay Dose meds/antibiotics for reduced GFR. Avoid fleets enema/magnesium based laxatives. Avoid nephrotoxins/NSAIDs/ iodinated contrast (unless needed emergently) Glycemic control Further work up/management as per primary team can initiate d/c planning, stable from renal perspective for outpt f/up 1 week Thanks for allowing me to participate in care of your patient. Will follow patient with you. Please call if any Qs. had d/w team Dr Mikie Cobb Office: [phone] Chief Complaint; fall at home Reason for consult: Acute Kidney Injury HPI: Pt is a 62 M with hx of seizure, hypertension (years) presented with complaints of fall at home and found to have severe TIERRA. pt was seen by ICU but he refused treatment as recommended. Denies OTC/herbal meds or NSAIDs No recent iodinated contrast exposure. Noted obvious episodes of low BP. pt denies CP/SOB/nausea/vomiting. feels better. reports decreased appetite for last few days and decreased urine output as well pt not aware about kidney disease in past. pt had TIERRA in apr 2017, cr was 1.9 at d/c ROS: pt reports hand joint pain better and being treated with colchicine Cardiovascular: No chest pain. Pulmonary: No shortness of breath Gastrointestinal: denies abdominal pain No nausea. No vomiting. Genitourinary: No pain while urinating. Denies blood in urine. noted increase in UOP All other negative except as mentioned in HPI Physical Examination: General Appearance: Comfortable, in no acute respiratory distress, co-operative . Vitals reviewed and noted as below Head; Atraumatic, normocephalic ENT: no ulcers no thrush. Tongue is midline. Oropharynx: no rash or ulcers. superficial abrasion over upper nose+ EYES: Pupils are equal, round and reactive to light accommodation. Eye muscles and extraocular movement intact. Sclera is anicteric. Neck; supple no lymphadenopathy, no thyromegaly or bruit Lungs: Normal respiratory rate/effort. Breath sounds bilateral equal and clear Heart: Normal rate. s1s2 normal. No rub or gallop. Extremities: no edema. No varicose veins Neurological: Patient is alert, awake and oriented to person, place and time. No focal deficit. Strength bilateral appropriate and equal. Skin: Warm and dry. Normal turgor. No rash. Palpitation: Normal elasticity for age Abdomen: Abdomen is soft. Bowel sounds +. There is no abdominal tenderness, no guarding/rigidity no organomegaly Psych: normal insight and flat affect/mood MSK: no joint tenderness or swelling. Digits and nails normal, no deformity : kidney or bladder not palpable Labs/imaging reviewed. Past medical history, past surgical history, family history, social history, allergy reviewed and noted as below Family hx: no hx of CKD. Rest non-contributory Vit D <12.8 PTH 529 TSAT 10% Ferritin 387 uric acid 15 Objective - Vital Signs/Intake and Output Vital Signs (last 24 hours): Temp Pulse Resp BP Pulse Ox 98.2 F 74 20 114/72 96 11/30/17 08:02 11/30/17 08:02 11/30/17 08:02 11/30/17 08:02 11/30/17 08:02 Intake and Output: 11/30/17 11/30/17 06:59 18:59 Intake Total 635 Output Total 1100 Balance -465 - Medications Medications: Current Medications Acetaminophen (Tylenol 325mg Tab) 650 mg PO ONCE PRN PRN Reason: 30min prior to transfusion Allopurinol (Zyloprim) 100 mg PO DAILY [facility] Last Admin: 11/30/17 10:12 Dose: 100 mg Bupropion HCl (Wellbutrin) 75 mg PO DAILY [facility] Last Admin: 11/30/17 10:12 Dose: 75 mg Colchicine (Colocrys) 0.6 mg PO BID [facility] Last Admin: 11/30/17 10:12 Dose: 0.6 mg Diphenhydramine HCl (Benadryl) 25 mg IVP ONCE PRN PRN Reason: 30min prior to transfusion Last Admin: 11/26/17 13:18 Dose: 25 mg Epoetin Nick (Procrit) 8,000 unit SC MWF [facility] Last Admin: 11/29/17 12:22 Dose: 8,000 unit Ergocalciferol (Drisdol 50,000 Intl Units Cap) 1 cap PO Q7D [facility] Last Admin: 11/26/17 10:49 Dose: 1 cap Hydroxyzine HCl (Atarax) 25 mg PO Q6 PRN PRN Reason: Anxiety Last Admin: 11/29/17 10:43 Dose: 25 mg Ferric Sodium Gluconate Complex 125 mg/ Sodium Chloride 110 mls @ 110 mls/hr IVPB DAILY [facility] Stop: 12/03/17 10:01 Last Admin: 11/30/17 10:12 Dose: 110 mls/hr Magnesium Sulfate/Dextrose (Magnesium Sulfate 1 Gm/100 Ml D5w) 1 gm in 100 mls @ 100 mls/hr IVPB Q1H [facility] Stop: 11/30/17 12:29 Last Admin: 11/30/17 11:21 Dose: 100 mls/hr Levetiracetam (Keppra) 1,000 mg PO BID [facility] Last Admin: 11/30/17 10:12 Dose: 1,000 mg Magnesium Oxide (Mag-Ox) 400 mg PO BID [facility] Metoprolol Succinate (Toprol Xl) 100 mg PO DAILY [facility] Last Admin: 11/30/17 10:12 Dose: 100 mg Potassium Chloride (Klor-Con 10) 10 meq PO BRK [facility] Last Admin: 11/30/17 08:29 Dose: 10 meq Trazodone HCl (Desyrel) 50 mg PO HS [facility] Last Admin: 11/29/17 21:32 Dose: 50 mg Vitamin B Complex/Vit C/Folic Acid (Nephro-Margret) 1 tab PO 0800 [facility] Last Admin: 11/30/17 08:29 Dose: 1 tab - Labs Labs: 11/30/17 06:26 11/30/17 06:26
[2017-11-30 16:10] VITALS: BP 135/88; PULSE 73; TEMP 98.1; O2SAT 100
[2017-11-30] MEDS ORDERED: Magnesium Oxide 400 mg Tab UD PO SCH (18:00)
--- NOTE | 2017-11-30 20:41 | CP.PCM.PN ---
Subjective - Date & Time of Evaluation Date of Evaluation: 11/29/17 Time of Evaluation: 19:00 - Subjective Subjective: No complaints. Objective - Vital Signs/Intake and Output Vital Signs (last 24 hours): Temp Pulse Resp BP Pulse Ox 98.1 F 73 20 135/88 100 11/30/17 15:00 11/30/17 15:00 11/30/17 15:00 11/30/17 15:00 11/30/17 15:00 - Labs Labs: 11/30/17 06:26 11/30/17 06:26 - Head Exam Head Exam: ATRAUMATIC - Eye Exam Eye Exam: Normal appearance - ENT Exam ENT Exam: Mucous Membranes Dry - Respiratory Exam Respiratory Exam: NORMAL BREATHING PATTERN - Cardiovascular Exam Cardiovascular Exam: +S1, +S2 - GI/Abdominal Exam GI & Abdominal Exam: Normal Bowel Sounds Assessment and Plan (1) Anemia Assessment & Plan: hypoproliferative erythroid response f/u monoclonal protein w/u ? anemia of CKD no iron/b12/folate deficiency H/H improved Status: Acute
--- NOTE | 2017-11-30 20:43 | CP.PCM.PN ---
Subjective - Date & Time of Evaluation Date of Evaluation: 11/30/17 Time of Evaluation: 12:00 - Subjective Subjective: No complaints. Objective - Vital Signs/Intake and Output Vital Signs (last 24 hours): Temp Pulse Resp BP Pulse Ox 98.1 F 73 20 135/88 100 11/30/17 15:00 11/30/17 15:00 11/30/17 15:00 11/30/17 15:00 11/30/17 15:00 - Labs Labs: 11/30/17 06:26 11/30/17 06:26 - Head Exam Head Exam: ATRAUMATIC - Eye Exam Eye Exam: Normal appearance - ENT Exam ENT Exam: Mucous Membranes Dry - Respiratory Exam Respiratory Exam: NORMAL BREATHING PATTERN - Cardiovascular Exam Cardiovascular Exam: +S1, +S2 - GI/Abdominal Exam GI & Abdominal Exam: Normal Bowel Sounds Assessment and Plan (1) Anemia Assessment & Plan: hypoproliferative erythroid response ? anemia of CKD no iron/b12/folate deficiency f/u outpatient SPEP outpatient bone marrow depending on above Status: Acute
== END 2017-11-30 18:19 | DRG 683 ==
LOC: C.ER 11:26 → C.9E 16:18 → C.6T 22:51
PROVIDERS: ADMIT Internal Medicine Pulmonary Disease; ATTEND Internal Medicine Pulmonary Disease
DX: N17.0 Acute kidney failure with tubular necrosis (principal); M62.82 Rhabdomyolysis; E87.0 Hyperosmolality and hypernatremia; E87.2 Acidosis; G40.909 Epilepsy, unspecified, not intractable, without status epilepticus; I12.9 Hypertensive chronic kidney disease with stage 1 through stage 4 chronic kidney disease, or unspecified chronic kidney disease; N18.3 Chronic kidney disease, stage 3 (moderate); J90 Pleural effusion, not elsewhere classified; E87.6 Hypokalemia; F33.1 Major depressive disorder, recurrent, moderate; E83.39 Other disorders of phosphorus metabolism; E83.42 Hypomagnesemia; F41.9 Anxiety disorder, unspecified; E55.9 Vitamin D deficiency, unspecified; G47.00 Insomnia, unspecified; D63.1 Anemia in chronic kidney disease; M10.9 Gout, unspecified; S00.31XA Abrasion of nose, initial encounter; W19.XXXA Unspecified fall, initial encounter; Y92.009 Unspecified place in unspecified non-institutional (private) residence as the place of occurrence of the external cause